=== PATIENT | female | born 1955 | race Caucasian/White ===

== ENCOUNTER 2019-12-28 16:29 | Inpatient (IN) | payer OTHER ==
--- NOTE | 2019-12-28 18:08 | ER ---
Nurse's Notes [facility] Name: Mary Shields Age: 64 yrs Sex: Female : 1955 Arrival Date: 12/28/2019 Time: 16:31 Bed 13 Private MD: Diagnosis: Cellulitis of right lower limb;Unspecified open wound, right lower leg Presentation: 12/27 17:00 Chief complaint: Patient states: Sent by Dr. Allen for evaluation of wound infection ss to R lateral ankle. Coronavirus screen: Client denies travel out of the [place] in the last 14 days. 17:00 Method Of Arrival: Ambulatory ss 17:27 Ebola Screen: Patient negative for fever greater than or equal to 101.5 degrees ca1 Fahrenheit, and additional compatible Ebola Virus Disease symptoms No symptoms or risks identified at this time. Initial Sepsis Screen: Does the patient meet any 2 criteria? No. Patient's initial sepsis screen is negative. Does the patient have a suspected source of infection? No. Patient's initial sepsis screen is negative. Risk Assessment: Do you want to hurt yourself or someone else? Patient reports no desire to harm self or others. Onset of symptoms was December 28, 2019. 17:27 Acuity: EFRAÍN 3 ca1 Historical: - Allergies: 17:21 No Known Allergies; ss - Immunization history:: Adult Immunizations up to date. - Social history:: Smoking status: Patient denies any tobacco usage or history of. Screenin:00 Abuse screen: Denies threats or abuse. Denies injuries from another. Nutritional ca1 screening: No deficits noted. Tuberculosis screening: No symptoms or risk factors identified. Fall Risk Secondary diagnosis (15 points) impaired mobility, IV access (20 points). Ambulatory Aid- Crutches/Cane/Walker (15 pts). Gait- Impaired (20 pts.). Total Sandra Fall Scale indicates High Risk Score (45 or more points). Fall prevention measures have been instituted. Side Rails Up X 2 Family Present and informed to notify staff if the need to leave the bedside As available patient and family educated on Fall Prevention Program and Strategies. Assessment: 17:20 General: Appears in no apparent distress. comfortable, Behavior is calm, cooperative, ca1 appropriate for age. 17:20 Pain: Denies pain. Neuro: Level of Consciousness is awake, alert, obeys commands, ca1 Oriented to person, place, time, situation, Appropriate for age. Derm: Skin is healthy with good turgor, Skin is pink, warm \\T\\ dry. Wound noted right lateral malleolus Wound is Nickel size, with serosanguinous drainage, eschar noted. Surrounding skin appears red, swollen and warm to touch. 17:40 Reassessment: Pt states, "I feel shaky, my blood sugar must be low". Checked BGL at 52. ca1 Notified provider. Ordered Regular diet. PT given some juice. 18:22 Reassessment: Patient appears in no apparent distress at this time. Patient and/or ca1 family updated on plan of care and expected duration. Pain level reassessed. Patient is alert, oriented x 3, equal unlabored respirations, skin warm/dry/pink. Dr. Cm at bedside. 19:13 Reassessment: Patient appears in no apparent distress at this time. Patient is alert, ca1 oriented x 3, equal unlabored respirations, skin warm/dry/pink. 20:21 Reassessment: Patient appears in no apparent distress at this time. Patient and/or ca1 family updated on plan of care and expected duration. Pain level reassessed. Patient is alert, oriented x 3, equal unlabored respirations, skin warm/dry/pink. 20:21 Reassessment: Called for report, no answer. ca1 20:35 Reassessment: Called for report. No answer. ca1 21:19 Reassessment: Patient appears in no apparent distress at this time. Patient and/or ca1 family updated on plan of care and expected duration. Pain level reassessed. Patient is alert, oriented x 3, equal unlabored respirations, skin warm/dry/pink. Vital Signs: 17:20 BP 199 / 83; Pulse 86; Resp 18 S; Temp 98(O); Pulse Ox 99% on R/A; Weight 61.23 kg (R); ca1 Height 5 ft. 4 in. (162.56 cm); Pain 0/10; 18:22 BP 197 / 112; Pulse 97; Resp 15 S; Pulse Ox 100% on R/A; ca1 19:13 BP 186 / 91; Pulse 90; Resp 18 S; Pulse Ox 99% on R/A; ca1 20:21 BP 171 / 62; Pulse 90; Resp 19 S; Pulse Ox 99% on R/A; ca1 21:19 BP 151 / 72; Pulse 92; Resp 18 S; Pulse Ox 99% on R/A; ca1 17:20 Body Mass Index 23.17 (61.23 kg, 162.56 cm) ca1 ED Course: 16:31 Patient arrived in ED. ag5 16:54 Chaz Flowers PA is PHCP. jr8 16:54 Mono Waters MD is Attending Physician. jr8 17:02 Anisa Bishop RN is Primary Nurse. ca1 17:21 Arm band placed on right wrist. ss 17:28 Triage completed. ca1 17:30 Patient has correct armband on for positive identification. Placed in gown. Bed in low ca1 position. Call light in reach. Side rails up X2. Pulse ox on. NIBP on. 17:36 Initial lab(s) drawn, by ED staff, sent to lab. Inserted saline lock: 20 gauge in right ca1 forearm, using aseptic technique. ,using aseptic technique. by MANUEL Mendoza Blood collected. 18:06 Dee Dee Cm MD is Hospitalizing Provider. jr8 18:08 [employer] In Process Unspecified. EDMS 18:22 Inserted saline lock: 22 gauge in left wrist, using aseptic technique. Blood collected. ca1 18:22 Initial lab(s) drawn, by me, sent to lab. Second set of blood cultures drawn by me. ca1 19:13 No provider procedures requiring assistance completed. Patient admitted, IV remains in ca1 place. Administered Medications: 19:00 Drug: Cefepime 1 grams Route: IVPB; Rate: 200 ml/hr; Infused Over: 30 mins; Site: left ca1 wrist; 19:34 Follow up: Response: No adverse reaction; IV Status: Completed infusion; IV Intake: ca1 100ml 19:35 Drug: vancoMYCIN 1 grams Route: IVPB; Infused Over: 2 hrs; Site: left wrist; ca1 20:22 Follow up: Response: No adverse reaction; IV Status: Infusion continued upon admission ca1 Intake: 19:34 IV: 100ml; Total: 100ml. ca1 Outcome: 18:07 Decision to Hospitalize by Provider. jr8 21:23 Admitted to Tele accompanied by tech, via wheelchair, room 401, with chart, Report ca1 called to MANUEL Nance 21:23 Condition: stable 21:23 Instructed on the need for admit. 21:52 Patient left the ED. ca1 Signatures: Dispatcher [employer] Nelly Bartholomew RN RN ss Chaz Flowers PA PA jr8 Anisa Bishop RN RN ca1 Ml Jamil ag5 Corrections: (The following items were deleted from the chart) 17:49 17:30 General: Appears ca1 ca1
--- NOTE | 2019-12-28 18:08 | EDPHYS ---
Physician Documentation [facility] Name: Mary Shields Age: 64 yrs Sex: Female : 1955 Arrival Date: 12/28/2019 Time: 16:31 Bed 13 Private MD: ED Physician Mono Waters HPI: 12/27 17:33 This 64 yrs old Female presents to ER via Ambulatory with complaints of Wound jr8 Check. 17:33 The affected area is on the right ankle. Progress: The patient reports increased jr8 drainage, pain, redness, swelling. The patient has not experienced similar symptoms in the past. The patient has been recently seen by a physician:. Patient stated that she just started wound therapy at our outpatient center. Stated that after Dr. Allen saw it today, had concern for infection and was directed to ED for further evaluation. Patient stated that it is foul smelling and with increased swelling, redness, and discharge . Historical: - Allergies: 17:21 No Known Allergies; ss - Immunization history:: Adult Immunizations up to date. - Social history:: Smoking status: Patient denies any tobacco usage or history of. ROS: 17:33 Eyes: Negative for injury, pain, redness, and discharge, ENT: Negative for injury, jr8 pain, and discharge, Neck: Negative for injury, pain, and swelling, Cardiovascular: Negative for chest pain, palpitations, and edema, Respiratory: Negative for shortness of breath, cough, wheezing, and pleuritic chest pain, Abdomen/GI: Negative for abdominal pain, nausea, vomiting, diarrhea, and constipation, Back: Negative for injury and pain, MS/Extremity: Negative for injury and deformity, Neuro: Negative for headache, weakness, numbness, tingling, and seizure. 17:33 Skin: Positive for erythema, swelling, ulceration, of the right ankle. Exam: 17:33 Eyes: Pupils equal round and reactive to light, extra-ocular motions intact. Lids and jr8 lashes normal. Conjunctiva and sclera are non-icteric and not injected. Cornea within normal limits. Periorbital areas with no swelling, redness, or edema. ENT: Nares patent. No nasal discharge, no septal abnormalities noted. Tympanic membranes are normal and external auditory canals are clear. Oropharynx with no redness, swelling, or masses, exudates, or evidence of obstruction, uvula midline. Mucous membranes moist. Neck: Trachea midline, no thyromegaly or masses palpated, and no cervical lymphadenopathy. Supple, full range of motion without nuchal rigidity, or vertebral point tenderness. No Meningismus. Respiratory: Lungs have equal breath sounds bilaterally, clear to auscultation and percussion. No rales, rhonchi or wheezes noted. No increased work of breathing, no retractions or nasal flaring. Abdomen/GI: Soft, non-tender, with normal bowel sounds. No distension or tympany. No guarding or rebound. No evidence of tenderness throughout. Back: No spinal tenderness. No costovertebral tenderness. Full range of motion. Skin: Warm, dry with normal turgor. Normal color with no rashes, no lesions, and no evidence of cellulitis. Neuro: Awake and alert, GCS 15, oriented to person, place, time, and situation. Cranial nerves II-XII grossly intact. Motor strength 5/5 in all extremities. Sensory grossly intact. Cerebellar exam normal. Normal gait. 17:33 Musculoskeletal/extremity: Extremities: grossly normal except: noted in the right leg: Patient has approximately 2.5 cm well demarcated ulceration with eschar present at the lateral malleolus of the right ankle. Swelling and erythema surrounds the wound and extends to the foot. Swelling extends to the foot and up through the calf , ROM: intact in all extremities, Femoral and Popliteal pulses 2+ right leg. DP and PT not palpable . Sensation intact. Vital Signs: 17:20 BP 199 / 83; Pulse 86; Resp 18 S; Temp 98(O); Pulse Ox 99% on R/A; Weight 61.23 kg (R); ca1 Height 5 ft. 4 in. (162.56 cm); Pain 0/10; 18:22 BP 197 / 112; Pulse 97; Resp 15 S; Pulse Ox 100% on R/A; ca1 19:13 BP 186 / 91; Pulse 90; Resp 18 S; Pulse Ox 99% on R/A; ca1 20:21 BP 171 / 62; Pulse 90; Resp 19 S; Pulse Ox 99% on R/A; ca1 21:19 BP 151 / 72; Pulse 92; Resp 18 S; Pulse Ox 99% on R/A; ca1 17:20 Body Mass Index 23.17 (61.23 kg, 162.56 cm) ca1 MDM: 16:54 Patient medically screened. [facility] 18:04 Data reviewed: vital signs, nurses notes, lab test result(s), radiologic studies, plain jr films, ultrasound. Data interpreted: Pulse oximetry: on room air is 99 %. Interpretation: normal. Counseling: I had a detailed discussion with the patient and/or guardian regarding: the historical points, exam findings, and any diagnostic results supporting the discharge/admit diagnosis, lab results, radiology results, the need for further work-up and treatment in the hospital. 12/27 17:09 Order name: LFT's; Complete Time: 16:51 [facility] 12/27 17:09 Order name: Procalcitonin; Complete Time: 16:51 [facility] 12/27 17:09 Order name: ESR; Complete Time: 16:51 [facility] 12/27 17:09 Order name: CRP; Complete Time: 16:51 [facility] 12/27 17:09 Order name: Blood Culture Adult (2) [facility] 12/27 17:46 Order name: Glucose, Ancillary Testing; Complete Time: 17:54 [facility] 12/27 18:33 Order name: CBC with Automated Diff [facility] 12/27 18:33 Order name: CBC with Automated Diff; Complete Time: 16:51 [facility] 12/27 18:33 Order name: Lipid Profile [facility] 12/27 18:33 Order name: Lipid Profile; Complete Time: 16:51 [facility] 12/27 18:33 Order name: Protime (+INR) [facility] 12/27 18:33 Order name: Protime (+INR); Complete Time: 16:51 [facility] 12/27 17:09 Order name: IV; Complete Time: 17:36 [facility] 12/27 17:09 Order name: US LE Artery Uni Ltd; Complete Time: 16:51 [facility] 12/27 17:32 Order name: Diet Regular; Complete Time: 17:33 [facility] 12/27 18:33 Order name: CONS Pharmacy Consult [facility] 12/27 18:33 Order name: CONS Pharmacy Consult [facility] 12/27 18:33 Order name: CONS Physician Consult [facility] 12/27 18:33 Order name: CONS Physician Consult [facility] 12/27 18:33 Order name: NPO [facility] 12/27 18:33 Order name: PTT, Activated Partial Thromb [facility] 12/27 18:33 Order name: PTT, Activated Partial Thromb; Complete Time: 16:51 [facility] 12/27 18:33 Order name: CONS [facility] Cons [facility] 12/27 18:35 Order name: Bone Imaging Three Phase [facility] 12/27 21:34 Order name: Glucose, Ancillary Testing; Complete Time: 16:51 [facility] Administered Medications: 19:00 Drug: Cefepime 1 grams Route: IVPB; Rate: 200 ml/hr; Infused Over: 30 mins; Site: left ca1 wrist; 19:34 Follow up: Response: No adverse reaction; IV Status: Completed infusion; IV Intake: ca1 100ml 19:35 Drug: vancoMYCIN 1 grams Route: IVPB; Infused Over: 2 hrs; Site: left wrist; ca1 20:22 Follow up: Response: No adverse reaction; IV Status: Infusion continued upon admission ca1 Disposition: 12/28/19 18:07 Hospitalization ordered by Dee Dee Cm for Inpatient Admission. Preliminary diagnosis are Cellulitis of right lower limb, Unspecified open wound, right lower leg. - Bed requested for Telemetry/MedSurg (Inpatient). - Status is Inpatient Admission. ca1 - Condition is Stable. - Problem is new. - Symptoms are unchanged. Addendum: 01/02/2020 19:06 Co-signature as Attending Physician, Mono Waters MD. r n Signatures: Dispatcher [employer] [facility] Mono Waters MD MD rn Smirch, Shelby, RN RN ss Roszak, Josh, PA PA jr8 Queta Calvert RN RN tl1 Anisa Bishop RN RN ca1 Corrections: (The following items were deleted from the chart) 12/27 17:36 17:10 CBC+H.LAB.BRZ ordered. [facility] 17:36 17:10 BASIC METABOLIC PANEL+C.LAB.BRZ ordered. [facility] 19:50 18:07 Hospitalization Ordered by Dee Dee Cm MD for Inpatient Admission. Preliminary tl1 diagnosis is Cellulitis of right lower limb; Unspecified open wound, right lower leg. Bed requested for Telemetry/MedSurg (Inpatient). Status is Inpatient Admission. Condition is Stable. Problem is new. Symptoms are unchanged. jr8 21:52 19:50 12/28/2019 18:07 Hospitalization Ordered by Dee Dee Cm MD for Inpatient ca1 Admission. Preliminary diagnosis is Cellulitis of right lower limb; Unspecified open wound, right lower leg. Bed requested for Telemetry/MedSurg (Inpatient). Status is Inpatient Admission. Condition is Stable. Problem is new. Symptoms are unchanged. tl1
--- NOTE | 2019-12-28 18:19 | RAD REPORT ---
EXAM DESCRIPTION: US - Lower Extremity Artery Uni Ltd - 12/28/2019 6:08 pm CLINICAL HISTORY: Leg pain/peripheral vascular disease COMPARISON: None FINDINGS: The right common femoral, superficial femoral arteries are biphasic The right popliteal, posterior tibial and dorsalis pedis arteries demonstrate monophasic waveforms bi laterally. IMPRESSION: Mild disease involving the proximal arteries right lower extremity Moderate disease involving the mid and distal arteries right lower extremity No occlusion
[2019-12-28] MEDS ORDERED: MORPHINE 2 MG/ML SYR IV PRN (18:21)
[2019-12-28] MEDS ORDERED: ONDANSETRON 4 MG/2 ML VIAL IV PRN (18:21)
[2019-12-28] MEDS ORDERED: CEFEPIME/SWI 1gm 1 ML IVP ONE (19:00)
[2019-12-28 19:11] LABS: Albumin 3.3 g/dL (3.4-5.0); Bilirubin Direct 0.2 mg/dL (0-0.2); Bilirubin Total 0.7 mg/dL (0.2-1.0); C-Reactive Protein 13.6 mg/L (<3.00); Protein, Total 7.9 g/dL (6.4-8.2)
[2019-12-28] MEDS ORDERED: NA CHLORIDE 0.9% 250 ML ONE (19:35)
[2019-12-28] MEDS ORDERED: VANCOMYCIN 1 GM/VIAL ONE (19:35)
[2019-12-28] MEDS: VANCOMYCIN/NS 1 gm 1 GM/250 ML BAG IVPB SCH (20:00)
[2019-12-28 22:53] VITALS: BMI 23.1
[2019-12-28] MEDS: NA CHLORIDE 0.9% 1,000 ML IV SCH (23:12)
[2019-12-28] MEDS: ACETAMINOPHEN 500 MG TAB PO PRN (23:12)
[2019-12-28] MEDS: Levofloxacin500mg IV 500 MG/100 ML BAG IV SCH (23:12)
[2019-12-29] MEDS: HYDRALAZINE HCL 20 MG/ML VIAL IV PRN ×3 (00:23→22:38)
[2019-12-29 06:20] LABS: Basophils % 0.3 % (0-1.3); Hematocrit 29.4 % (36.0-45.0); Lymphocytes % 13.7 % (15.3-44.8); MPV 7.4 fL (7.6-11.3); RBC Red Blood Cell Count 3.69 M/uL (3.86-4.86)
[2019-12-29 06:28] LABS: Protime INR 1.14
[2019-12-29] MEDS: VANCOMYCIN/NS 1 gm 1 GM/250 ML BAG IVPB SCH ×2 (08:00→22:38)
[2019-12-29] MEDS: NA CHLORIDE 0.9% 1,000 ML IV SCH ×2 (08:03→18:15)
--- NOTE | 2019-12-29 08:19 | P.HP ---
Certification for Inpatient Patient admitted to: Inpatient With expected LOS: >2 Midnights Patient will require the following post-hospital care: None Practitioner: I am a practitioner with admitting privileges, knowledge of patient current condition, hospital course, and medical plan of care. Services: Services provided to patient in accordance with Admission requirements found in Title 42 Section 412.3 of the Code of Federal Regulations Patient History Date of Service: 12/28/19 Reason for admission: Ulceration on the right foot History of Present Illness: Patient is a 64-year-old female who presents to the hospital with a cellulitis and right lateral malleolus ulceration. Patient had arterial Doppler in the emergency room which revealed mild peripheral arterial disease. Patient was seen and wound healing by Dr. Allen, and he sent her to the emergency room. She has surrounding cellulitis of the wound. She has a history of diabetes. S he was started on IV antibiotics and she will need MRI of the foot today. Our MRI machine has been down so I may do a triple phase bone scan to further evaluate. Otherwise, patient with no complaints. She does have significant nephropathy of the lower extremities. She will need to follow up with wound healing. We did get General surgery consultation as it looks like the ankle may need debridement and we will keep her NPO after midnight. Allergies No Known Allergies Allergy (Verified 12/28/19 14:16) Home Medications: Insulin Glargine,Hum.rec.anlog [Basaglar Kwikpen U-100] 20 units SQ BID 12/28/19 Metoprolol Succinate [Toprol Xl] 100 mg PO BEDTIME 12/28/19 Tramadol HCl [Ultram] 50 mg PO Q6HP PRN 12/28/19 - Past Medical/Surgical History Has patient received pneumonia vaccine in the past: Yes Diabetic: Yes -: IDDM -: HTN -: bilateral cataract sx -: lap joseph -: nerve surgery rfa -: breast reduction - Family History Father History Unknown: Yes Notes: Mother Medical History: Hypertension, Diabetes Notes: - Social History Smoking Status: Never smoker Alcohol use: No CD- Drugs: No Caffeine use: Yes Place of Residence: Home Review of Systems 10-point ROS is otherwise unremarkable Physical Examination - Vital Signs Temperature: 98.6 F Blood Pressure: 178/75 Pulse: 87 Respirations: 18 Pulse Ox (%): 96 - Physical Exam General: Alert, In no apparent distress, Oriented x3 HEENT: Atraumatic, PERRLA, Mucous membr. moist/pink, EOMI, Sclerae nonicteric Neck: Supple, 2+ carotid pulse no bruit, No LAD, Without JVD or thyroid abnormality Respiratory: Clear to auscultation bilaterally, Normal air movement Cardiovascular: Regular rate/rhythm, Normal S1 S2, No murmurs Gastrointestinal: Normal bowel sounds, Soft and benign, Non-distended, No tenderness Musculoskeletal: No clubbing, Swelling, Erythema, Tenderness Integumentary: Arterial ulcer Neurological: Normal gait, Normal speech, Normal strength at 5/5 x4 extr, Normal tone, Sensation intact, Cranial nerves 3-12 intact, Normal affect Lymphatics: No axilla or inguinal lymphadenopathy - Studies Laboratory Data (last 24 hrs) 12/28/19 18:18: Sodium Cancelled, Potassium Cancelled, BUN Cancelled, Creatinine Cancelled, Glucose Cancelled, Total Bilirubin 0.7, AST 23, ALT 19, Alkaline Phosphatase 131 H 12/28/19 17:43: WBC Cancelled, Hgb Cancelled, Hct Cancelled, Plt Count Cancelled Assessment & Plan - Problems (Diagnosis) (1) Wound of right ankle Current Visit: Yes Status: Acute (2) PAD (peripheral artery disease) Current Visit: Yes Status: Acute (3) Type 2 diabetes mellitus Current Visit: Yes Status: Acute (4) Diabetes Current Visit: No Status: Acute (5) Hx of breast reduction, elective Current Visit: No Status: Acute (6) Hx of cataract surgery Current Visit: No Status: Acute (7) Hypertension Current Visit: No Status: Acute (8) Neuropathy Current Visit: No Status: Acute (9) Osteomyelitis Current Visit: No Status: Suspected - Plan 1. Continue with IV antibiotic; anti-platelet therapy 2. Continue with local wound care 3. Wound care consultation/surgical consultation 4. Gentle IV hydration 5. Monitor CBC 6. Strict blood sugar monitoring 7. Pain control 8. Cardiology consultation for PAD 9. GI and DVT prophylaxis Discharge Plan: Home Plan to discharge in: Greater than 2 days - Advance Directives Does patient have a Living Will: Yes Does patient have a Durable POA for Healthcare: No - Code Status/Comfort Care Code Status Assessed: Yes Code Status: Full Code Critical Care: No Time Spent Managing PTS Care (In Minutes): 45
[2019-12-29] MEDS: D50W 25 GM/50 ML SYRINGE/VIAL IV PRN ×2 (08:26→11:53)
--- NOTE | 2019-12-29 11:46 | RAD REPORT ---
EXAM DESCRIPTION: NM - Bone Imaging Three Phase - 12/29/2019 10:55 am CLINICAL HISTORY: Right ankle pain/ulceration COMPARISON: December 28, 2019 x-ray TECHNIQUE: 25.6 mCi Tc MDPwas administered intravenously. Three-phase bone scan of the ankles/feet obtained FINDINGS: The perfusion and blood pool images demonstrate mildly increased radiotracer uptake to th e right ankle The delayed images demonstrate areas of increased radiotracer uptake involving the ankles bilaterally which is actually more prominent on the left. Increased uptake also involves the left great toe like ly degenerative in nature IMPRESSION: Increased radiotracer uptake involving the ankles left greater than right probably degen erative in nature Mildly increased radiotracer uptake involving the right ankle on blood pool and perfusion sequences p robably indicating a cellulitis If strong clinical suspicion persists for osteomyelitis then MRI would be recommended
[2019-12-29] MEDS ORDERED: LIDOCAINE 1% MPF 5 ML VIAL ONE (12:20)
[2019-12-29] MEDS ORDERED: propofoL 200 MG/20 ML VIAL IV ONE (12:20)
[2019-12-29] MEDS ORDERED: FENTANYL CITR 100 MCG/2 ML ONE (12:20)
[2019-12-29] MEDS ORDERED: dexAMETHasone 10 MG/ML VIAL ONE (12:38)
[2019-12-29] MEDS ORDERED: KETOROLAC 30 MG/ML INJ ONE (12:38)
[2019-12-29] MEDS ORDERED: ONDANSETRON 4 MG/2 ML VIAL ONE (12:38)
--- NOTE | 2019-12-29 12:44 | P.BOP ---
Preoperative diagnosis: right malleolar necrotic diabetic ulcer Postoperative diagnosis: same Primary procedure: Debridement subQ of right malleolar necrotic diabetic ulcer 3 x 3 x 0.5cm Estimated blood loss: miminal Specimen: necrotic tissue and ulcer culture Findings: necrotic tissue, bone exposed Anesthesia: General Complications: None Drain(s): Other Transferred to: Recovery Room Condition: Good
--- NOTE | 2019-12-29 13:22 | CON ---
Date of Consultation: 12/29/2019 Diagnosis: Necrotic ulcer, right foot. History Of Present Illness: This is the case of a 64-year-old patient with multiple medical problems , admitted to the hospital with cellulitis of the right leg and also a diabetic ulcer with necrosis a nd infection on the right malleolar region. She does not remember exactly what happened, she recalle d, she probably hit it before and that has healed, develop into this black tissue then redness. She has been admitted to the hospital and being workup also to rule out osteomyelitis. She denies any dy suria, hematuria, hematochezia, melena. Denies any recent traveling out of the country. Denies any family member sick at home. Review of Systems: Ten points otherwise unremarkable. Allergies: NONE. Medications: Insulin, metoprolol, and . Past Medical History: Diabetes insulin-dependent and hypertension. Past Surgical History: Include a breast reduction surgery, laparoscopic cholecystectomy, and catarac t surgery. Family History: Hypertension and diabetes. Social History: She does not smoke. She does not drink alcohol. Physical Examination: General: The patient is awake and alert. HEENT: Pupils anicteric. Neck: Supple. Chest: Clear. Abdomen: Soft and depressible. Extremities: Full range of motion of the right malleolar region. The patient has about 3 x 3 cm katy betic ulcer with black tissue associated with it. Looks consistent with abscess and cellu litis and need to be debrided. How did that goes, we will see it after the surgery. Since, I guesst imate if the bone is infected or not, although a bone scan or MRI may also give us some help to delin eate that. Dorsalis pedis pulses bilaterally are diminished, although is still present. Imaging: Doppler ultrasound of the bilateral lower extremities shows mild disease involving the prox imal arteries right lower extremity. The bone scan done today, but they cannot delineate osteomyelit is just on this test. Assessment: This is 64-year-old patient with necrotic diabetic ulcer in the right ankle foot region. The patient need debridement with benefits, alternatives, and risks including, but not limited to i nfection, bleeding, damage to adjacent structures, anesthesia complication, nonhealing ulcer, VT, and even . She also understands this may not relieve the symptoms. She might need more than one s urgical intervention. She understands this will require wound care and most likely she [facility] BONITA Voice ID: [id number] Report ID: [id number]
[2019-12-29] MEDS: Levofloxacin500mg IV 500 MG/100 ML BAG IV SCH (18:11)
[2019-12-30] MEDS: NA CHLORIDE 0.9% 1,000 ML IV SCH ×3 (01:00→20:35)
[2019-12-30] MEDS: COLLAGENASE 30 GM OINTMENT TOP SCH (09:00)
[2019-12-30] MEDS: VANCOMYCIN/NS 1 gm 1 GM/250 ML BAG IVPB SCH ×2 (09:10→20:35)
--- NOTE | 2019-12-30 09:57 | P.PN ---
Subjective Date of Service: 12/29/19 Subjective: No new changes, No C/O voiced, Tolerating diet Review of Systems 10-point ROS is otherwise unremarkable Physical Examination - Vital Signs Temperature: 98.5 F Blood Pressure: 141/65 Pulse: 81 Respirations: 18 Pulse Ox (%): 97 - Physical Exam General: Alert, In no apparent distress, Oriented x3 Respiratory: Clear to auscultation bilaterally, Normal air movement Cardiovascular: Regular rate/rhythm, Normal S1 S2, No murmurs Gastrointestinal: Normal bowel sounds, Soft and benign, Non-distended, No tenderness Musculoskeletal: No clubbing, Swelling, Erythema, Tenderness, Warmth Neurological: Normal strength at 5/5 x4 extr, Sensation intact, Cranial nerves 3-12 intact - Studies Medications List Reviewed: Yes Assessment & Plan - Problems (Diagnosis) (1) Wound of right ankle Current Visit: Yes Status: Acute (2) PAD (peripheral artery disease) Current Visit: Yes Status: Acute (3) Type 2 diabetes mellitus Current Visit: Yes Status: Acute (4) Diabetes Current Visit: No Status: Acute (5) Hx of breast reduction, elective Current Visit: No Status: Acute (6) Hx of cataract surgery Current Visit: No Status: Acute (7) Hypertension Current Visit: No Status: Acute (8) Neuropathy Current Visit: No Status: Acute (9) Osteomyelitis Current Visit: No Status: Suspected - Plan Continue with POC as mentioned below: 1. Continue with IV antibiotic; anti-platelet therapy 2. Continue with local wound care 3. Wound care consultation/surgical consultation appreciated; s/p debridement 4. Gentle IV hydration 5. Monitor CBC 6. Strict blood sugar monitoring 7. Pain control 8. Cardiology consultation for PAD appreciated; outpt follow-up 9. GI and DVT prophylaxis Discharge Plan: Home Plan to discharge in: Greater than 2 days - Advance Directives Does patient have a Living Will: Yes Does patient have a Durable POA for Healthcare: No - Code Status/Comfort Care Code Status: Full Code Critical Care: No Time Spent Managing PTS Care (In Minutes): 35
[2019-12-30] MEDS ORDERED: TRAMADOL HCL 50 MG TAB PO PRN (15:35)
[2019-12-30] MEDS: Levofloxacin500mg IV 500 MG/100 ML BAG IV SCH (17:34)
--- NOTE | 2019-12-30 19:50 | CON ---
Date of Consultation: 12/29/2019 Reason For Consultation: Cardiac clearance and peripheral arterial disease evaluation. History Of Present Illness: Ms. Shields is a 64-year-old woman, who came in with a complaint of wound o n her right ankle with increasing drainage, pain, redness, and swelling. She had been sent to the [facility] by Dr. Allen to be evaluated. She had no cardiac complaint. Past Medical History: Include diabetes and hypertension. Review of Systems: Negative. Social History: Negative. Family History: Noncontributory. Physical Examination: Vital Signs: Stable. She did have a temperature of 99.1. She was in sinus rhythm. HEENT: Negative. Neck: Supple. No bruit. Chest: Clear to auscultation and percussion. Cardiac: Regular rhythm and rate. No murmurs, gallops, or rubs. Abdomen: Benign. Extremities: No clubbing, cyanosis, or edema. Diagnostic Data: Her glucose was 234. C-reactive protein was 13.1. The rest of her blood work was fairly unremarkable. Her procalcitonin was negative. An arterial Doppler revealed mild disease invo lving the proximal arteries of the right lower extremity, moderate disease involving the mid and dist al arteries of the right lower extremities. No occlusion. Impression And Plan: The patient with peripheral arterial disease that is mild to moderate, diabetes , hypertension. She has no cardiac symptoms and no evidence of coronary artery disease or congestive heart failure by physical examination. The patient has been seen by Dr. Aponte for her necrotic r ight foot ulcer. Debridement was recommended. From our standpoint, she is cleared to undergo surger y. I think considering her risk factors of hypertension, diabetes, and peripheral arterial disease, she definitely should have her cardiac status evaluated, and I will make arrangements for her as an o utpatient. FARIBA/LINETTE Voice ID: [id number] Report ID: [id number]
[2019-12-30] MEDS: ACETAMINOPHEN 500 MG TAB PO PRN (20:34)
[2019-12-30] MEDS: INSULIN GLARGINE HUM REC ANLOG 20 UNIT SQ SCH (20:35)
[2019-12-30] MEDS ORDERED: METOPROLOL XL 100 MG TAB PO SCH (21:00)
[2019-12-30 21:22] VITALS: O2SAT 96
[2019-12-31] MEDS: NA CHLORIDE 0.9% 1,000 ML IV SCH (04:07)
[2019-12-31] MEDS: HYDRALAZINE HCL 20 MG/ML VIAL IV PRN (05:24)
[2019-12-31 06:34] LABS: Absolute Lymphocytes (CBC) 1.1 K/uL (0.7-4.9); Basophils % 0.5 % (0-1.3); Hematocrit 26.5 % (36.0-45.0); Lymphocytes % 21.8 % (15.3-44.8); MPV 7.3 fL (7.6-11.3); RBC Red Blood Cell Count 3.27 M/uL (3.86-4.86)
[2019-12-31 06:46] LABS: BUN Blood Urea Nitrogen 11 mg/dL (7-18); Bicarbonate 23 mmol/L (21-32); Glucose Level 139 mg/dL (74-106); Phosphorus 2.2 mg/dL (2.5-4.9); Potassium 3.7 mmol/L (3.5-5.1); Sodium Level 145 mmol/L (136-145)
[2019-12-31] MEDS: INSULIN GLARGINE HUM REC ANLOG 20 UNIT SQ SCH (07:54)
[2019-12-31] MEDS: VANCOMYCIN/NS 1 gm 1 GM/250 ML BAG IVPB SCH (07:55)
[2019-12-31] MEDS: COLLAGENASE 30 GM OINTMENT TOP SCH (07:57)
[2019-12-31 08:12] VITALS: BP 169/72; TEMP 99.1
[2019-12-31] MEDS ORDERED: LOSARTAN POTASSIUM 50 MG TABLET PO ONE (09:04)
== END 2019-12-31 10:55 | disposition home or self-care (01) | DRG 264 ==
LOC: ER 16:29 → ERHOLD 18:24 → 4TH 21:37
PROVIDERS: ADMIT Hospitalist; ATTEND Hospitalist
PROC: 0JBQ0ZZ Excision of Right Foot Subcutaneous Tissue and Fascia, Open Approach (ICD-10-PCS; principal; 2019-12-29 12:30)
DX: E11.52 Type 2 diabetes mellitus with diabetic peripheral angiopathy with gangrene (principal); L03.115 Cellulitis of right lower limb; I96 Gangrene, not elsewhere classified; L02.415 Cutaneous abscess of right lower limb; I10 Essential (primary) hypertension; E11.42 Type 2 diabetes mellitus with diabetic polyneuropathy; E11.621 Type 2 diabetes mellitus with foot ulcer; L97.519 Non-pressure chronic ulcer of other part of right foot with unspecified severity; Z79.899 Other long term (current) drug therapy; Z79.4 Long term (current) use of insulin; Z20.828 Contact with and (suspected) exposure to other viral communicable diseases
CPT/HCPCS: 11042; 36415; 78315; 80048; 80061; 80076; 80202; 82565; 82947; 83735; 84100; 84145; 85025; 85610; 85652; 85730; 86140; 87040; 87070; 87075; 87077; 87186; 87205; 88302; 88304; 93926; 96365; 96367; 99204; 99285; A9503; J0360; J0692; J1100; J2270; J2405; J2704; J3010; J3370; J3590; J7030; J7050; U0002

== ENCOUNTER 2022-03-07 09:16 | Observation (INO) | payer OTHER ==
[2022-03-07] MEDS ORDERED: ONDANSETRON 4 MG/2 ML VIAL ONE (10:08)
[2022-03-07] MEDS ORDERED: MORPHINE 2 MG/ML SYR ONE (10:08)
[2022-03-07 10:19] LABS: Hematocrit 33.6 % (36.0-45.0); MCV 87.1 fL (80-100); MPV 7.9 fL (7.6-11.3); RBC Red Blood Cell Count 3.86 M/uL (3.86-4.86)
[2022-03-07 10:33] LABS: Albumin 3.7 g/dL (3.4-5.0); Bilirubin Total 0.9 mg/dL (0.2-1.0); Potassium 4.1 mmol/L (3.5-5.1); Protein, Total 7.7 g/dL (6.4-8.2)
[2022-03-07 11:09] LABS: Urine Blood 1+ (Negative); Urine Glucose 1+ (Negative); Urine Protein 1+ (Negative)
[2022-03-07 11:24] LABS: Urine RBC <5 /HPF (None Seen)
--- NOTE | 2022-03-07 11:50 | EDPHYS ---
Physician Documentation [facility] Name: Mary Shields Age: 66 yrs Sex: Female : 1955 Arrival Date: 03/07/2022 Time: 09:19 Bed 16 Private MD: ED Physician Cam Tan HPI: 03/07 11:03 This 66 yrs old Female presents to ER via EMS with complaints of Vaginal Pain.juliette 11:03 The patient presents with urinary symptoms, urinary retention. Onset: The juliette symptoms/episode began/occurred 1 day(s) ago. Modifying factors: The symptoms are alleviated by nothing, the symptoms are aggravated by nothing. Associated signs and symptoms: The patient has no apparent associated signs or symptoms. Severity of symptoms: At their worst the symptoms were mild, in the emergency department the symptoms are unchanged. The patient is not sexually active. The patient has not experienced similar symptoms in the past. Historical: - Allergies: :31 No Known Allergies; db - Home Meds: : Bactrim DS Oral [Active]; db - PMHx: :31 Diabetes mellitus; Hypertensive disorder; db - Immunization history:: Adult Immunizations unknown, Client reports receiving the 2nd dose of the Covid vaccine. - Social history:: Smoking status: Patient denies any tobacco usage or history of. ROS: 11:06 Constitutional: Negative for fever, chills, and weight loss, Eyes: Negative for injury, juliette pain, redness, and discharge, ENT: Negative for injury, pain, and discharge, Neck: Negative for injury, pain, and swelling, Cardiovascular: Negative for chest pain, palpitations, and edema, Respiratory: Negative for shortness of breath, cough, wheezing, and pleuritic chest pain, Back: Negative for injury and pain, MS/Extremity: Negative for injury and deformity, Skin: Negative for injury, rash, and discoloration, Neuro: Negative for headache, weakness, numbness, tingling, and seizure, Psych: Negative for depression, anxiety, suicide ideation, homicidal ideation, and hallucinations, Allergy/Immunology: Negative for hives, rash, and allergies, Endocrine: Negative for neck swelling, polydipsia, polyuria, polyphagia, and marked weight changes, Hematologic/Lymphatic: Negative for swollen nodes, abnormal bleeding, and unusual bruising. 11:06 Abdomen/GI: Positive for Exam: 11:09 Constitutional: This is a well developed, well nourished patient who is awake, alert, juliette and in no acute distress. Head/Face: Normocephalic, atraumatic. Eyes: Pupils equal round and reactive to light, extra-ocular motions intact. Lids and lashes normal. Conjunctiva and sclera are non-icteric and not injected. Cornea within normal limits. Periorbital areas with no swelling, redness, or edema. ENT: Nares patent. No nasal discharge, no septal abnormalities noted. Tympanic membranes are normal and external auditory canals are clear. Oropharynx with no redness, swelling, or masses, exudates, or evidence of obstruction, uvula midline. Mucous membranes moist. Neck: Trachea midline, no thyromegaly or masses palpated, and no cervical lymphadenopathy. Supple, full range of motion without nuchal rigidity, or vertebral point tenderness. No Meningismus. Chest/axilla: Normal chest wall appearance and motion. Nontender with no deformity. No lesions are appreciated. Cardiovascular: Regular rate and rhythm with a normal S1 and S2. No gallops, murmurs, or rubs. Normal PMI, no JVD. No pulse deficits. Respiratory: Lungs have equal breath sounds bilaterally, clear to auscultation and percussion. No rales, rhonchi or wheezes noted. No increased work of breathing, no retractions or nasal flaring. Back: No spinal tenderness. No costovertebral tenderness. Full range of motion. Female : Normal external genitalia. Skin: Warm, dry with normal turgor. Normal color with no rashes, no lesions, and no evidence of cellulitis. MS/ Extremity: Pulses equal, no cyanosis. Neurovascular intact. Full, normal range of motion. Neuro: Awake and alert, GCS 15, oriented to person, place, time, and situation. Cranial nerves II-XII grossly intact. Motor strength 5/5 in all extremities. Sensory grossly intact. Cerebellar exam normal. Normal gait. Psych: Awake, alert, with orientation to person, place and time. Behavior, mood, and affect are within normal limits. 11:09 Abdomen/GI: Inspection: distension, that is mild, that is moderate, in the suprapubic area, Bowel sounds: normal, Palpation: mild abdominal tenderness, in the suprapubic area, Liver: no appreciated palpable abnormalities, Hernia: not appreciated. 16:39 ECG was reviewed by the Attending Physician. [facility] Vital Signs: 09:15 BP 232 / 77; Pulse 90; Resp 18; Temp 98.7(O); Pulse Ox 99% ; Weight 70.31 kg; Height 5 db ft. 4 in. (162.56 cm); Pain 9/10; 09:45 BP 161 / 108; Pulse 89; Resp 16; Pulse Ox 100% on R/A; db 10:30 BP 216 / 96; Pulse 88; Resp 18; Pulse Ox 99% on R/A; db 11:00 BP 140 / 57; Pulse 81; Resp 16; Pulse Ox 100% on R/A; db 22:03 BP 137 / 52; Pulse 83; Resp 17; Temp 99(O); Pulse Ox 100% on R/A; Pain 0/10; ke1 09:15 Body Mass Index 26.61 (70.31 kg, 162.56 cm) db MDM: 09:25 Patient medically screened. [facility] 11:11 Differential diagnosis: nonspecific abdominal pain, urinary tract infection. Data [facility] reviewed: vital signs, nurses notes, lab test result(s), radiologic studies, plain films. Data interpreted: athletic monitor: rate is 81 beats/min, rhythm is regular, Pulse oximetry: on room air is 100 %. Test interpretation: by ED physician or midlevel provider: plain radiologic studies. Counseling: I had a detailed discussion with the patient and/or guardian regarding: the historical points, exam findings, and any diagnostic results supporting the discharge/admit diagnosis, lab results, radiology results, the need for outpatient follow up. 03/07 09:26 Order name: CBC with Diff; Complete Time: 11:02 [facility] 03/07 09:26 Order name: Comprehensive Metabolic Panel; Complete Time: 11:02 [facility] 03/07 09:26 Order name: Urine Microscopic Only; Complete Time: 11:25 juliette 03/07 11:02 Order name: Urine Culture [facility] 03/07 11:09 Order name: Urine Dipstick-Ancillary; Complete Time: 11:15 EDMS 03/07 11:46 Order name: SARS RAPID; Complete Time: 20:46 [facility] 03/07 11:02 Order name: Abdomen 1 View (KUB) XRAY; Complete Time: 20:46 [facility] 03/07 11:25 Order name: CT Stone Protocol; Complete Time: 20:46 [facility] 03/07 11:46 Order name: Chest Single View XRAY; Complete Time: 20:46 [facility] 03/07 11:46 Order name: Troponin High Sensitivity; Complete Time: 20:46 [facility] 03/07 14:12 Order name: CBC with Automated Diff EDMS 03/07 14:12 Order name: CBC with Automated Diff EDNC 03/07 14:12 Order name: Comprehensive Metabolic Panel EDNC 03/07 14:12 Order name: Comprehensive Metabolic Panel EDNC 03/07 09:26 Order name: Urine Dipstick-Ancillary (obtain specimen); Complete Time: 11:09 [facility] 03/07 09:26 Order name: Sebastian: GET PVR; Complete Time: 11:09 [facility] 03/07 09:26 Order name: Pelvic Exam Setup; Complete Time: 11:09 [facility] 03/07 11:46 Order name: EKG; Complete Time: 11:47 [facility] 03/07 11:46 Order name: EKG - Nurse/Tech; Complete Time: 16:39 [facility] 03/07 14:12 Order name: CONS Physician Consult EDNC 03/07 14:12 Order name: Regular EDMS EC:39 Rate is 81 beats/min. Rhythm is regular. QRS Dendron is Normal. ND interval is normal. QRS juliette interval is normal. QT interval is normal. No Q waves. T waves are Normal. No ST changes noted. Clinical impression: NSR w/ Non-specific ST/T Changes and No evidence of ischemia. Interpreted by me. Reviewed by me. Administered Medications: 13:19 Drug: Rocephin (cefTRIAXone) 1 grams Route: IV; Rate: per protocol; Site: right db antecubital; 13:45 Follow up: Response: No adverse reaction; IV Status: Completed infusion; IV Intake: 50mldb 13:19 Drug: NS 0.9% 1000 ml Route: IV; Rate: 125 ml/hr; Site: right antecubital; db 17:31 Follow up: Response: No adverse reaction; IV Status: Infusion continued upon admission; db IV Intake: 500ml Disposition Summary: 03/07/22 11:49 Hospitalization Ordered Hospitalization Status: Observation juliette Location: Telemetry/MedSurg (observation) juliette Condition: Stable juliette Problem: new juliette Symptoms: have improved juliette Bed/Room Type: Standard juliette Provider: Reji Cm03/07/22 12:12) juliette Room Assignment: 408(03/07/22 19:30) [place] Diagnosis - Acute kidney failure, unspecified juliette - Retention of urine, unspecified - 1 liter juliette - Type 2 diabetes mellitus with hyperglycemia juliette - Unspecified urinary incontinence - with pessary, removed juliette Forms: - Medication Reconciliation Form jluiette - SBAR form juliette Signatures: Dispatcher [employer] EDAshly Henson RN RN mw Anderson, Corey, MD MD cha Benton, Danielle, RN RN Sona Lynne, PACaren PA-Bobby sb4 Corrections: (The following items were deleted from the chart) 12:12 11:49 Sancho Guzman cha [facility] 19:30 11:49 juliette atkinson
--- NOTE | 2022-03-07 11:50 | ER ---
Nurse's Notes [facility] Name: Mary Shields Age: 66 yrs Sex: Female : 1955 Arrival Date: 03/07/2022 Time: 09:19 Bed 16 Private MD: Diagnosis: Acute kidney failure, unspecified;Retention of urine, unspecified-1 liter;Type 2 diabetes mellitus with hyperglycemia;Unspecified urinary incontinence-with pessary, removed Presentation: 03/07 09:15 Chief complaint: Patient states: vaginal pain from temporary palmer. States had a db temporary plamer placed by doctor yesterday to help empty bladder. States recently diagnosed with UTI and is taking antibiotics. Coronavirus screen: Vaccine status: Patient reports receiving the 2nd dose of the covid vaccine. Client denies travel out of the [place] in the last 14 days. At this time, the client does not indicate any symptoms associated with coronavirus-19. Ebola Screen: Patient negative for fever greater than or equal to 101.5 degrees Fahrenheit, and additional compatible Ebola Virus Disease symptoms Patient denies exposure to infectious person. Patient denies travel to an Ebola-affected area in the 21 days before illness onset. No symptoms or risks identified at this time. Initial Sepsis Screen: Does the patient meet any 2 criteria? No. Patient's initial sepsis screen is negative. Does the patient have a suspected source of infection? No. Patient's initial sepsis screen is negative. Risk Assessment: Do you want to hurt yourself or someone else? Patient reports no desire to harm self or others. Onset of symptoms was March 07, 2022. 09:15 Method Of Arrival: EMS: [facility] db 09:15 Acuity: EFRAÍN 3 db Triage Assessment: :31 General: Appears in no apparent distress. comfortable, Behavior is calm, cooperative, db appropriate for age. Pain: Complains of pain in vaginal. Neuro: No deficits noted. Level of Consciousness is awake, alert, obeys commands, Oriented to person, place, time, situation, Appropriate for age. Historical: - Allergies: : No Known Allergies; db - Home Meds: : Bactrim DS Oral [Active]; db - PMHx: : Diabetes mellitus; Hypertensive disorder; db - Immunization history:: Adult Immunizations unknown, Client reports receiving the 2nd dose of the Covid vaccine. - Social history:: Smoking status: Patient denies any tobacco usage or history of. Screenin:33 Abuse screen: Denies threats or abuse. Denies injuries from another. Nutritional db screening: No deficits noted. Tuberculosis screening: No symptoms or risk factors identified. Fall Risk None identified. No fall in past 12 months (0 pts). No secondary diagnosis (0 pts). No IV (0 pts). Ambulatory Aid- None/Bed Rest/Nurse Assist (0 pts). Gait- Normal/Bed Rest/Wheelchair (0 pts) Mental Status- Oriented to own ability (0 pts). Total Sandra Fall Scale indicates No Risk (0-24 pts). Assessment: 09:33 Reassessment: Patient appears in no apparent distress at this time. Patient is alert, db oriented x 3, equal unlabored respirations, skin warm/dry/pink. See triage for initial assessment. 10:15 Reassessment: Patient refused Morphine and zofran states pain is not bad enough for db that. 11:00 Reassessment: Patient appears in no apparent distress at this time. Patient and/or db family updated on plan of care and expected duration. Pain level reassessed. Patient is alert, oriented x 3, equal unlabored respirations, skin warm/dry/pink. patient reported immediate relief of pain after palmer catheter was inserted Patient states feeling better. Patient states symptoms have improved. 12:00 Reassessment: Patient appears in no apparent distress at this time. No changes from db previously documented assessment. Patient and/or family updated on plan of care and expected duration. Pain level reassessed. Patient is alert, oriented x 3, equal unlabored respirations, skin warm/dry/pink. 13:00 Reassessment: Patient appears in no apparent distress at this time. No changes from db previously documented assessment. Patient and/or family updated on plan of care and expected duration. Pain level reassessed. Patient is alert, oriented x 3, equal unlabored respirations, skin warm/dry/pink. 14:00 Reassessment: Patient appears in no apparent distress at this time. No changes from db previously documented assessment. Patient and/or family updated on plan of care and expected duration. Pain level reassessed. Patient is alert, oriented x 3, equal unlabored respirations, skin warm/dry/pink. 15:00 Reassessment: Patient appears in no apparent distress at this time. Patient and/or db family updated on plan of care and expected duration. Pain level reassessed. Patient is alert, oriented x 3, equal unlabored respirations, skin warm/dry/pink. 16:00 Reassessment: Patient appears in no apparent distress at this time. No changes from db previously documented assessment. Patient and/or family updated on plan of care and expected duration. Pain level reassessed. Patient is alert, oriented x 3, equal unlabored respirations, skin warm/dry/pink. Patient states feeling better. 17:20 Reassessment: Patient appears in no apparent distress at this time. No changes from db previously documented assessment. Patient and/or family updated on plan of care and expected duration. Pain level reassessed. patient is eating meal served. Vital Signs: 09:15 BP 232 / 77; Pulse 90; Resp 18; Temp 98.7(O); Pulse Ox 99% ; Weight 70.31 kg; Height 5 db ft. 4 in. (162.56 cm); Pain 9/10; 09:45 BP 161 / 108; Pulse 89; Resp 16; Pulse Ox 100% on R/A; db 10:30 BP 216 / 96; Pulse 88; Resp 18; Pulse Ox 99% on R/A; db 11:00 BP 140 / 57; Pulse 81; Resp 16; Pulse Ox 100% on R/A; db 22:03 BP 137 / 52; Pulse 83; Resp 17; Temp 99(O); Pulse Ox 100% on R/A; Pain 0/10; ke1 09:15 Body Mass Index 26.61 (70.31 kg, 162.56 cm) db ED Course: 09:19 Patient arrived in ED. eb 09:21 Patient has correct armband on for positive identification. Placed in gown. Bed in low mm9 position. Call light in reach. Side rails up X2. Warm blanket given. Pulse ox on. NIBP on. 09:25 Cam Tan MD is Attending Physician. [facility] 09:27 Kait Kohli, MANUEL is Primary Nurse. db 09:31 Triage completed. db 10:00 Inserted saline lock: 20 gauge in right antecubital area, using aseptic technique. db Blood collected. 11:00 Palmer cath inserted, using sterile technique, 16 Fr., by dc, balloon inflated, to db gravity drainage, urine specimen collected. 11:30 Abdomen 1 View (KUB) XRAY In Process Unspecified. EDMS 11:48 Sancho Guzman is Hospitalizing Provider. juliette 12:09 CT Stone Protocol In Process Unspecified. EDMS 12:12 Dee Dee Cm MD is Hospitalizing Provider. juliette 13:07 Chest Single View XRAY In Process Unspecified. EDMS 14:46 SARS RAPID Sent. rs5 14:46 Troponin High Sensitivity Sent. rs5 17:29 Arm band placed on right wrist. db 17:29 No provider procedures requiring assistance completed. Patient admitted, IV remains in db place. 20:39 Primary Nurse role handed off by Kait Kohli RN mw2 21:44 Nik Vaughn, MANUEL is Primary Nurse. ke1 Administered Medications: 13:19 Drug: Rocephin (cefTRIAXone) 1 grams Route: IV; Rate: per protocol; Site: right db antecubital; 13:45 Follow up: Response: No adverse reaction; IV Status: Completed infusion; IV Intake: 50mldb 13:19 Drug: NS 0.9% 1000 ml Route: IV; Rate: 125 ml/hr; Site: right antecubital; db 17:31 Follow up: Response: No adverse reaction; IV Status: Infusion continued upon admission; db IV Intake: 500ml Medication: 17:31 VIS not applicable for this client. db Intake: 13:45 IV: 50ml; Total: 50ml. db 17:31 IV: 500ml; Total: 550ml. db Output: 11:00 Urine: 1700ml (Palmer); Total: 1700ml. db Outcome: 11:49 Decision to Hospitalize by Provider. juliette 17:29 Admitted to db 17:29 Admitted to 17:29 Condition: stable 17:29 Instructed on the need for admit. 22:12 Patient left the ED. ke1 Signatures: Dispatcher [employer] EDMS Cam Tan MD MD cha Westbrook, MyKena mw2 Farhana Arriola Kouassi, RN RN ke1 Kait Kohli, MANUEL RN Nydia Madrigal Ricky rs5
--- NOTE | 2022-03-07 12:35 | RAD REPORT ---
EXAM DESCRIPTION: CT - Stone Protocol - 03/07/2022 12:08 pm CLINICAL HISTORY: Abdominal pain. Flank pain COMPARISON: None. TECHNIQUE: Computed axial tomography of the abdomen pelvis was obtained without oral or IV contrast. Lack of IV and oral contrast limits evaluation of solid organs, appendix, bowel, and vessels. Ordoñez l reformatted images were obtained and reviewed. All CT scans are performed using dose optimization technique as appropriate and may include automated exposure control or mA/KV adjustment according to patient size. FINDINGS: A renal calculus is not seen. An ureteral calculus is not noted. A bladder calculus is not present. No hydronephrosis Cholecystectomy. The liver, spleen, pancreas and adrenals appear grossly normal There is no evidence of diverticulitis. Retroverted uterus. No adnexal mass. Small umbilical hernia A Sebastian catheter has been placed. The bladder is completely decompressed. Left hip arthroplasty. Moderate compression deformity L1 vertebral body it appears more chronic than acute Mild lingular and right middle lobe opacities appear chronic IMPRESSION: Negative for a genitourinary calculus
--- NOTE | 2022-03-07 12:38 | RAD REPORT ---
EXAM DESCRIPTION: RAD - Abdomen 1 View (KUB) - 03/07/2022 11:28 am CLINICAL HISTORY: Abdomen pain FINDINGS: The bowel gas pattern is unremarkable. 6 x 1 centimeter area of increased density superior to the pubic symphysis of uncertain etiology. Cholecystectomy Left hip arthroplasty
[2022-03-07] MEDS ORDERED: NA CHLORIDE 0.9% 1,000 ML ONE (13:12)
[2022-03-07] MEDS ORDERED: NA CHLORIDE 0.9% 50 ML IV ONE (13:12)
[2022-03-07] MEDS ORDERED: CEFTRIAXONE 1000 MG/VIAL ONE (13:12)
--- NOTE | 2022-03-07 13:36 | RAD REPORT ---
EXAM DESCRIPTION: Remy Single View03/07/2022 1:05 pm CLINICAL HISTORY: Cough COMPARISON: 2019 FINDINGS: Mild chronic bibasilar lung opacities. Upper lobes appear clear. Heart is normal size IMPRESSION: No acute abnormalities displayed
[2022-03-07] MEDS ORDERED: ONDANSETRON 4 MG/2 ML VIAL IV PRN (14:06)
[2022-03-07] MEDS ORDERED: MORPHINE 2 MG/ML SYR IV PRN (14:06)
[2022-03-07] MEDS ORDERED: ACETAMINOPHEN 500 MG TAB PO PRN (14:06)
--- NOTE | 2022-03-07 14:13 | P.HP ---
Certification for Inpatient Patient admitted to: Inpatient With expected LOS: >2 Midnights Patient will require the following post-hospital care: None Practitioner: I am a practitioner with admitting privileges, knowledge of patient current condition, hospital course, and medical plan of care. Services: Services provided to patient in accordance with Admission requirements found in Title 42 Section 412.3 of the Code of Federal Regulations Patient History Date of Service: 03/07/22 Reason for admission: JOSE History of Present Illness: Patient is a 66-year-old female who came to the hospital with dysuria. Apparently her pessary is causing some postobstructive renal failure. This was removed in the emergency room. Patient had about a liter of urine output afterwards. She will be admitted to the hospital to monitor her renal function for observation. Allergies No Known Allergies Allergy (Verified 12/28/19 14:16) Home Medications: Insulin Glargine,Hum.rec.anlog [Basaglar Kwikpen U-100] 20 units SQ BID 12/28/19 Metoprolol Succinate [Toprol Xl] 100 mg PO BEDTIME 12/28/19 Losartan Potassium [Cozaar*] 50 mg PO BID #60 tablet 12/31/19 Glipizide [Glipizide ER] 10 mg PO DAILY 03/07/22 Simvastatin [Zocor] 20 mg PO BEDTIME 03/07/22 Triamterene/Hydrochlorothiazid [Triamterene-Hctz 37.5-25 mg Cp] 37.5 mg PO DAILY 03/07/22 Cefdinir [Cefdinir*] 300 mg PO BID #14 cap 03/08/22 - Past Medical/Surgical History Diabetic: Yes -: IDDM -: HTN -: bilateral cataract sx -: lap joseph -: nerve surgery rfa -: breast reduction - Family History Father Notes: Mother Medical History: Hypertension, Diabetes Notes: - Social History Alcohol use: No CD- Drugs: No Caffeine use: Yes Physical Examination - Studies Laboratory Data (last 24 hrs) 03/07/22 10:00: Sodium 136, Potassium 4.1, BUN 35 H, Creatinine 1.65 H, Glucose 278 H, Total Bilirubin 0.9, AST 22, ALT 27, Alkaline Phosphatase 132 H 03/07/22 10:00: WBC 9.30, Hgb 11.5 L, Hct 33.6 L, Plt Count 231 Assessment & Plan - Problems (Diagnosis) (1) JOSE (acute kidney injury) Current Visit: Yes Status: Acute (2) Problem with vaginal pessary Current Visit: Yes Status: Acute (3) Hypertension Current Visit: No Status: Acute (4) Neuropathy Current Visit: No Status: Acute (5) Type 2 diabetes mellitus Current Visit: No Status: Acute - Plan Plan: 1. Continue with IV hydration 2. Continue with pain control 3. Monitor renal function 4. Strict blood pressure and blood sugar control 5. GI and DVT prophylaxis - Advance Directives Does patient have a Living Will: Yes Does patient have a Durable POA for Healthcare: No
[2022-03-07] MEDS: NA CHLORIDE 0.9% 1,000 ML IV SCH ×2 (15:00→22:49)
[2022-03-07 15:16] LABS: SARS-CoV-2 Antigen Rapid Res Negative (Negative)
[2022-03-07 17:28] VITALS: BMI 26.6
[2022-03-07] MEDS ORDERED: D50W 25 GM/50 ML SYRINGE IV PRN (22:41)
[2022-03-07] MEDS ORDERED: GLUCAGON 1 MG/VIAL IM PRN (22:41)
[2022-03-07] MEDS ORDERED: D10W 125 ML IV PRN (22:44)
[2022-03-07] MEDS: INSULIN -REGULAR HUMAN 50 UNIT/0.5 ML ML SQ SCH (22:49)
[2022-03-08 05:58] LABS: Absolute Lymphocytes (CBC) 1.4 K/uL (0.7-4.9); Hematocrit 25.8 % (36.0-45.0); Lymphocytes % 21.2 % (15.3-44.8); MPV 7.7 fL (7.6-11.3); RBC Red Blood Cell Count 2.96 M/uL (3.86-4.86)
[2022-03-08 06:08] LABS: Albumin 2.7 g/dL (3.4-5.0); Bilirubin Total 0.6 mg/dL (0.2-1.0); Potassium 3.8 mmol/L (3.5-5.1); Protein, Total 5.9 g/dL (6.4-8.2)
[2022-03-08] MEDS: INSULIN -REGULAR HUMAN 50 UNIT/0.5 ML ML SQ SCH ×3 (07:30→16:39)
[2022-03-08] MEDS: NA CHLORIDE 0.9% 1,000 ML IV SCH ×2 (09:00→11:00)
[2022-03-08] MEDS ORDERED: PNEUMOCOCCAL VACCINE 0.5 ML IMVAC ONE (10:00)
--- NOTE | 2022-03-08 12:02 | P.CNS ---
Date of Consult: 03/08/22 Reason for Consult: JOSE Chief Complaint: JOSE History of Present Illness: A 66-year-old female who with PMhx of DM and HTn on losartan Hx of Uterine prolapse , DM CKD Cr 1.2 in June Pt came to the hospital with pelvic pain and unable to urinate pt had hx of Uterine prolapse , Passary placed on Wednesday, after that pt was complaining of lowe abdominal pain and inability to urinate passary was removed in the emergency room. Patient had about a liter of urine output afterwards. , In ER cr 1.6 ROS General : denies fever, chills, WT change weakness, insomnia HEENT: Denies dry, vision changes and headache Resp: denies SOB, cough or wheezes Cardiovascular: denied chest pain, palpitation , no SOB GI: denies abdominal pain, diarrhea or constipation : denies dysuria, urgency, foamy urine or blood tinged urine Musculoskeletal: denies muscle aches, joint pain Endo: denies polyuria and and polydipsia Extre: denies pain numbness and swelling Physical exam General: AAOx3, NAD, obese HEENT PERRLA, moist mucose membrane neck: supple, no elevated JVD CHEST; CTAB, no wheezes or rales HEART : RRR. Normal S1,2 no murmur or rub Abd: soft, Nt, palmer catheter Ext: no edema Skin : No rash #JOSE on CKD due to Obstructive uropathy cr improved to 1.5 renal diet renal dose medication #Obstructive uropathy likely due blocakge 2/2 vaginal passary Passary removed will dc palmer trial of Void #DM SSI #HTN Hold Losartan low salt diet Thanks for allowing me to participate in pt care , pt can be discharged from nephrology point of view if she pass vaginal passary , if not then can be discharged with palmer and f/u with [employer]ISTER FRAME TENDER as an OP Total time spent 45 minutes including documentation, reviewing labs , placing orders and discussing with medical team Allergies No Known Allergies Allergy (Verified 12/28/19 14:16) Home Medications: Insulin Glargine,Hum.rec.anlog [Basaglar Kwikpen U-100] 20 units SQ BID 12/28/19 Metoprolol Succinate [Toprol Xl] 100 mg PO BEDTIME 12/28/19 Losartan Potassium [Cozaar*] 50 mg PO BID #60 tablet 12/31/19 Glipizide [Glipizide ER] 10 mg PO DAILY 03/07/22 Simvastatin [Zocor] 20 mg PO BEDTIME 03/07/22 Triamterene/Hydrochlorothiazid [Triamterene-Hctz 37.5-25 mg Cp] 37.5 mg PO DAILY 03/07/22 - Past Medical/Surgical History Diabetic: Yes -: IDDM -: HTN -: bilateral cataract sx -: lap joseph -: nerve surgery rfa -: breast reduction - Family History Father Notes: Mother Medical History: Hypertension, Diabetes Notes: - Social History Alcohol use: No CD- Drugs: No Caffeine use: Yes Physical Examination Temp Pulse Resp BP Pulse Ox 98.1 F 78 18 155/75 H 100 03/08/22 08:00 03/08/22 08:00 03/08/22 08:00 03/08/22 08:00 03/08/22 08:00
[2022-03-08 12:43] VITALS: O2SAT 99
[2022-03-08 16:33] VITALS: BP 167/76; TEMP 98.1
--- NOTE | 2022-03-08 17:46 | P.DS ---
Discharge Date: 03/08/22 Disposition: ROUTINE DISCHARGE Discharge Condition: GOOD Reason for Admission: JOSE Consultations: Nephrology - Problems (1) JOSE (acute kidney injury) Current Visit: Yes Status: Acute (2) Problem with vaginal pessary Current Visit: Yes Status: Acute (3) Hypertension Current Visit: No Status: Acute (4) Neuropathy Current Visit: No Status: Acute (5) Type 2 diabetes mellitus Current Visit: No Status: Acute Brief History of Present Illness: Patient is a 66-year-old female who came to the hospital with dysuria. Apparently her pessary is causing some postobstructive renal failure. This was removed in the emergency room. Patient had about a liter of urine output afterwards. She will be admitted to the hospital to monitor her renal function for observation. Hospital Course: Patient is currently doing well. Renal function is stable. At this time, patient is stable for discharge with outpatient follow-up. Vital Signs/Physical Exam: Temp Pulse Resp BP Pulse Ox 98.1 F 83 18 167/76 H 99 03/08/22 16:00 03/08/22 16:00 03/08/22 16:00 03/08/22 16:00 03/08/22 16:00 General: Alert, In no apparent distress, Oriented x3 Laboratory Data at Discharge: WBC 6.70 K/uL (4.3-10.9) 03/08/22 05:39 Hgb 8.8 g/dL (12.0-15.0) L D 03/08/22 05:39 Hct 25.8 % (36.0-45.0) L 03/08/22 05:39 Plt Count 170 K/uL (152-406) D 03/08/22 05:39 Sodium 141 mmol/L (136-145) D 03/08/22 05:39 Potassium 3.8 mmol/L (3.5-5.1) 03/08/22 05:39 BUN 33 mg/dL (7-18) H 03/08/22 05:39 Creatinine 1.55 mg/dL (0.55-1.3) H 03/08/22 05:39 Glucose 150 mg/dL (74-106) H 03/08/22 05:39 Total Bilirubin 0.6 mg/dL (0.2-1.0) 03/08/22 05:39 AST 14 U/L (15-37) L 03/08/22 05:39 ALT 21 U/L (12-78) 03/08/22 05:39 Alkaline Phosphatase 98 U/L (45-117) D 03/08/22 05:39 Home Medications: Insulin Glargine,Hum.rec.anlog [Basaglar Kwikpen U-100] 20 units SQ BID 12/28/19 Metoprolol Succinate [Toprol Xl] 100 mg PO BEDTIME 12/28/19 Losartan Potassium [Cozaar*] 50 mg PO BID #60 tablet 12/31/19 Glipizide [Glipizide ER] 10 mg PO DAILY 03/07/22 Simvastatin [Zocor] 20 mg PO BEDTIME 03/07/22 Triamterene/Hydrochlorothiazid [Triamterene-Hctz 37.5-25 mg Cp] 37.5 mg PO DAILY 03/07/22 Cefdinir [Cefdinir*] 300 mg PO BID #14 cap 03/08/22 New Medications: Cefdinir [Cefdinir*] 300 mg PO BID #14 cap Physician Discharge Instructions: -DC IV and DC home -Follow-up with PCP in 1 to 2 weeks -Follow-up with Dr. Mendieta scheduled -Follow-up with Nephrology in 1-2 weeks -Please call Dr. Cm at [phone] if any questions regarding hospital stay -Please call nursing station at [phone] if any nursing or medication questions -Return to the emergency room if symptoms worsen Diet: AHA Activity: Fall precautions Followup: Olivia Mendieta MD [ACTIVE - CAN ADMIT] - (call to schedule an appointment) NONE,NONE [Primary Care Provider] - 1-2 Weeks (Call to schedule an appointment) Time spent managing pt's care (in minutes): 35
--- NOTE | 2022-03-09 13:51 | EKG ---
Test Date: 2022-03-07 Test Time: 16:35:00 Acoustic Intelligence Specialist: KAYE MEASUREMENT RESULTS: Intervals: Rate: 81 LA: 130 QRSD: 94 QT: 396 QTc: 460 [place]: P: 29 LA: 130 QRS: -10 T: 50 INTERPRETIVE STATEMENTS: Normal sinus rhythm Septal infarct, age undetermined Abnormal ECG No previous ECG available for comparison Electronically Signed On 03-09-22 13:49:28 VISUAL C DEVELOPER by Juan Manuel Segundo
== END 2022-03-08 17:45 | disposition home or self-care (01) ==
LOC: ER 09:16 → ERHOLD 14:07 → 4TH 22:02
PROVIDERS: ADMIT Hospitalist; ATTEND Hospitalist
DX: N17.9 Acute kidney failure, unspecified (principal); I10 Essential (primary) hypertension; G62.9 Polyneuropathy, unspecified; E11.9 Type 2 diabetes mellitus without complications; R30.0 Dysuria; N81.4 Uterovaginal prolapse, unspecified; T85.9XXA Unspecified complication of internal prosthetic device, implant and graft, initial encounter; Z20.822 Contact with and (suspected) exposure to COVID-19
CPT/HCPCS: 96365; 96361; 87088; 85025 ×2; 87086; 36415; 82947 ×3; 84484; 80053 ×2; 76377; 74176; 74018; 71045; 51702; 99285; 87811; J1815 ×3; J7030 ×3; 81003; 81015; 93005; G0378; J2270; J2405

== ENCOUNTER 2022-03-24 09:10 | Day surgery (SDC) | payer OTHER ==
[2022-03-24 09:27] LABS: Transitional Epithelial <5 /HPF (None Seen); Urine Bacteria <20 /HPF (<20); Urine Bilirubin NEGATIVE (Negative); Urine Blood 3+ (OVER) (Negative); Urine Clarity Clear (Clear); Urine Color Light-Yellow (Yellow); Urine Glucose TRACE (Negative); Urine Protein 1+ (Negative); Urine RBC 21-50 /HPF (None Seen); Urine Urobilinogen Normal (Normal)
[2022-03-24 09:30] LABS: Potassium 4.6 mmol/L (3.5-5.1)
[2022-03-24 09:43] LABS: Absolute Lymphocytes (CBC) 1.2 K/uL (0.7-4.9); Hematocrit 31.4 % (36.0-45.0); Lymphocytes % 25.7 % (15.3-44.8); MCV 87.4 fL (80-100); MPV 7.9 fL (7.6-11.3)
[2022-03-24 09:47] LABS: Protime INR 1.05
[2022-03-24] MEDS ORDERED: NA CHLORIDE 0.9% 1,000 ML ONE ×2 (09:47→15:31)
[2022-03-24 10:17] VITALS: O2SAT 100
[2022-03-24] MEDS: CEFAZOLIN SODIUM 2 GM/VIAL ONE ×2 (11:40→12:40)
[2022-03-24] MEDS ORDERED: NA CHLORIDE 0.9% 100 ML IV ONE (12:19)
[2022-03-24] MEDS ORDERED: CEFAZOLIN SODIUM 1 GM/VIAL ONE ×2 (12:20→20:45)
[2022-03-24] MEDS ORDERED: FENTANYL CITR 100 MCG/2 ML ONE (12:23)
[2022-03-24] MEDS ORDERED: LIDOCAINE 2% MPF 5 ML VIAL ONE (12:24)
[2022-03-24] MEDS ORDERED: MIDAZOLAM HCL 2 MG/2 ML INJ ONE (12:24)
[2022-03-24] MEDS ORDERED: propofoL 200 MG/20 ML VIAL IV ONE (12:24)
[2022-03-24] MEDS ORDERED: ONDANSETRON 4 MG/2 ML VIAL ONE (12:25)
[2022-03-24] MEDS ORDERED: GLYCOPYRROLATE 0.2 MG/ML SYR ONE ×3 (12:25→12:27)
[2022-03-24] MEDS ORDERED: ROCURONIUM 50 MG/5 ML VIAL IV ONE (12:25)
[2022-03-24] MEDS ORDERED: NEOSTIGMINE 1 MG/ML -5 ML ONE (12:26)
[2022-03-24] MEDS ORDERED: EPHEDRINE SULF 50 MG/ML VIAL ONE (13:30)
[2022-03-24] MEDS: VASOPRESSIN 20 UNIT/ML VIAL ONE ×2 (13:40→15:18)
[2022-03-24] MEDS ORDERED: VASOPRESSIN 20 UNIT/ML VIAL ONE (15:23)
[2022-03-24] MEDS ORDERED: VECURONIUM 10 MG/VIAL IV ONE (15:26)
[2022-03-24 16:31] LABS: SARS-CoV-2 Antigen Rapid Res Negative (Negative)
[2022-03-24] MEDS ORDERED: IBUPROFEN 600 MG TAB PO PRN (16:46)
[2022-03-24] MEDS ORDERED: ACETAMINOPHEN 500 MG TAB PO PRN (16:46)
[2022-03-24] MEDS ORDERED: PROMETHAZINE 25 MG TABLET PO PRN (16:47)
[2022-03-24] MEDS: LOSARTAN POTASSIUM 50 MG TABLET PO SCH (18:15)
[2022-03-24 18:47] VITALS: BMI 26.6
[2022-03-24] MEDS ORDERED: HYDRALAZINE HCL 20 MG/ML VIAL IV PRN (19:32)
--- NOTE | 2022-03-24 19:42 | P.CNS ---
Date of Consult: 03/24/22 Reason for Consult: Medical management Requesting Physician: Olivia Mendieta Primary Care Provider: Dr. Rivera Chief Complaint: Hypertension History of Present Illness: 66-year-old female with history of insulin-dependent diabetes, hypertension, hyperlipidemia was brought into the hospital for surgical repair of uterovaginal prolapse and stress incontinence, during her postoperative period patient was no bertin to be markedly hypertensive with blood pressure in the 180s to 190s systolic, patient's surgeon requested hospitalist consult for management of hypertension. Patient was recently hospitalized on 03/07/2022 for urinary retention secondary to pessary, JOSE. At that time patient had pessary removed was able to void without difficulty, her initial creatinine at that time was 1.65, it decreased to 1.5 the next day on 03/08/2021 patient was discharged. Patient labs performed preoperatively today creatinine is 1.56. Patient is asymptomatic from her blood pressure denies any headache, chest pain, dizziness, blurred vision. She reports her blood pressure frequently dozes during hospitalizations she was given her p.o. medications prior to my seeing her which include losartan 50 mg p.o. twice daily, Toprol succinate 100 mg p.o. at bedtime. - Past Medical/Surgical History Diabetic: Yes -: IDDM -: HTN -: HLD -: bilateral cataract sx -: lap joseph -: nerve surgery rfa -: breast reduction -: Uterovaginal prolapse repair Psychosocial/ Personal History: Patient lives at home with family - Family History Father Notes: Mother Medical History: Hypertension, Diabetes Notes: - Social History Smoking Status: Never smoker Alcohol use: No CD- Drugs: No Caffeine use: Yes Place of Residence: Home <Paulie Robles - Last Filed: 03/24/22 19:37> <Rosendo Hansen - Last Filed: 03/25/22 10:34> Allergies No Known Allergies Allergy (Verified 03/24/22 08:39) Home Medications: Insulin Glargine,Hum.rec.anlog [Basaglar Kwikpen U-100] 20 units SQ BID 12/28/19 Metoprolol Succinate [Toprol Xl] 100 mg PO BEDTIME 12/28/19 Losartan Potassium [Cozaar*] 50 mg PO BID #60 tablet 12/31/19 Glipizide [Glipizide ER] 10 mg PO DAILY 03/07/22 Simvastatin [Zocor] 20 mg PO BEDTIME 03/07/22 Triamterene/Hydrochlorothiazid [Triamterene-Hctz 37.5-25 mg Cp] 37.5 mg PO DAILY 03/07/22 Cefdinir [Cefdinir*] 300 mg PO BID #14 cap 03/08/22 Enoxaparin Sodium [Lovenox 40 MG INJ] 40 mg SQ DAILY #14 ml 03/25/22 Review of Systems Unremarkable <Paulie Robles - Last Filed: 03/24/22 19:37> Physical Examination Temp Pulse Resp BP Pulse Ox 97 F 61 18 193/60 H 03/24/22 16:53 03/24/22 18:08 03/24/22 16:53 03/24/22 18:08 General: Alert, In no apparent distress, Oriented x3 HEENT: Atraumatic, PERRLA, Mucous membr. moist/pink, EOMI, Sclerae nonicteric Neck: Supple, 2+ carotid pulse no bruit, No LAD, Without JVD or thyroid abnormality Respiratory: Clear to auscultation bilaterally, Normal air movement Cardiovascular: Regular rate/rhythm, Normal S1 S2 Gastrointestinal: Normal bowel sounds, No tenderness Musculoskeletal: No tenderness Integumentary: No rashes Neurological: Normal gait, Normal speech, Normal tone, Normal affect Lymphatics: No axilla or inguinal lymphadenopathy Urinary: Sebastian catheter Laboratory Data (last 24 hrs) 03/24/22 08:55: Sodium 139, Potassium 4.6, BUN 30 H, Creatinine 1.56 H, Glucose 186 H 03/24/22 08:55: PT 11.6, INR 1.05, APTT 33.9 03/24/22 08:50: WBC 4.80, Hgb 10.7 L, Hct 31.4 L, Plt Count 232 <Paulie Robles - Last Filed: 03/24/22 19:37> Temp Pulse Resp BP Pulse Ox 98.9 F 70 18 166/70 H 99 03/25/22 07:50 03/25/22 07:50 03/25/22 07:50 03/25/22 07:50 03/25/22 07:50 Laboratory Data (last 24 hrs) 03/25/22 04:25: Sodium 139, Potassium 3.9 D, BUN 19 H, Creatinine 1.17 H, Glucose 122 H <Rosendo Hansen - Last Filed: 03/25/22 10:34> Conclusions/Impression: Assessment: Primary hypertension Diabetes mellitus type IIinsulin-dependent Hyperlipidemia Uterovaginal prolapse/stress incontinence Plan: Primary hypertension: Patient received her home medications recently including metoprolol 100 mg p.o. which she takes nightly and losartan 50 mg which she takes twice daily. Patient asymptomatic from her hypertension at this time. Added gentle IV fluids to assess for possible mild improvement in creatinine, if creatinine worsens in the morning may need to consider holding losartan, adding nephrology consult. As needed hydralazine for marked hypertension. Diabetes mellitus type IIinsulin-dependent: Continue home medication. Patient is prescribed insulin glargine 20 units subcu twice daily but she reports she t ypically only takes it daily every few days when her blood sugar is running high. Hyperlipidemia: Continue home meds Uterovaginal prolapse/stress incontinence: Further management per ORCHESTRA MUSICIAN surgery. DVT PPX: Per [employer]CHESTRA [employer]ICIAN surgery Code status: Full Critical Care: No Time Spent Managing Pts care (In Minutes): 35 <Paulie Robles - Last Filed: 03/24/22 19:37> Physician Review: Patient Assessed, Agree with Above Assessment and Plan <Rosendo Hansen - Last Filed: 03/25/22 10:34>
[2022-03-24] MEDS ORDERED: Ringers Lactate 1,000 ML IV SCH (20:00)
[2022-03-24] MEDS ORDERED: NA CHLORIDE 0.9% 100 ML ONE (20:47)
[2022-03-24] MEDS: CEFAZOLIN 1 GM in NA CHLORIDE 0.9% 50 ML IVPB SCH (20:49)
[2022-03-24] MEDS ORDERED: METOPROLOL XL 100 MG TAB PO SCH (21:00)
[2022-03-24] MEDS: MORPHINE 2 MG/ML SYR IV PRN (21:01)
[2022-03-25] MEDS: MORPHINE 2 MG/ML SYR IV PRN
[2022-03-25 04:57] LABS: Potassium 3.9 mmol/L (3.5-5.1)
[2022-03-25] MEDS ORDERED: D50W 25 GM/50 ML SYRINGE IV PRN (05:26)
[2022-03-25] MEDS ORDERED: GLUCAGON 1 MG/VIAL IM PRN (05:26)
[2022-03-25] MEDS ORDERED: NA CHLORIDE 0.9% 100 ML ONE (07:24)
[2022-03-25] MEDS ORDERED: CEFAZOLIN SODIUM 1 GM/VIAL ONE (07:24)
[2022-03-25] MEDS: CEFAZOLIN 1 GM in NA CHLORIDE 0.9% 50 ML IVPB SCH (07:24)
[2022-03-25] MEDS ORDERED: INSULIN -REGULAR HUMAN 50 UNIT/0.5 ML ML SQ SCH (07:30)
[2022-03-25] MEDS ORDERED: HEPARIN 5000 UNIT/ML 1 ML VIAL SQ ONE (07:43)
[2022-03-25] MEDS: LOSARTAN POTASSIUM 50 MG TABLET PO SCH (07:47)
[2022-03-25] MEDS ORDERED: INFLUENZA VACCINE (for 6+ mo) 0.5 ML DOSE IMVAC ONE (08:00)
--- NOTE | 2022-03-25 09:32 | OP ---
Date of Procedure: 03/24/2022 Surgeon: Olivia Mendieta MD Waiter/Waitress Tourist Class: Bianca Grissom. Preoperative Diagnoses: Complete uterovaginal prolapse, stress urinary incontinence, incomplete blad mona emptying, and incomplete bowel emptying. Constipation from outlet obstruction. Postoperative Diagnoses: At this time, stage IV uterovaginal prolapse, stress urinary incontinence, perineocele, incomplete bladder emptying, and constipation from outlet obstruction. Procedures Performed: 1.Endometrial biopsy. 2.LeFort partial colpocleisis. 3.Posterior repair and perineocele repair. 4.Mid urethral sling transobturator approach (TVT-O cystoscopy). Estimated Blood Loss: Less than 100. Urine Output: 180. Specimens: Endometrial biopsy. Complications: No complications. Drains: Sebastian catheter. Condition: Stable. Findings: Pop-Q -1, + 2, + 4, 7, 10, and 9, 0, 0, +1. Erosion on the cervix was noted from external trauma due to contact with the surfaces from her prolapse. However, endometrial biopsy was performe d prior to the colpocleisis. After colpocleisis, there was also significant perineocele and distal posterior wall defect that had to be repaired and reattached to the perineum and then the perineocele repair was performed in order to minimize the risk of recurrence. Indications For Surgery: The patient is a 66-year-old female with significant prolapse and bulge sym ptoms, incomplete bladder emptying, bladder infections, and bowel dysfunction as well. She has a bal ance disorder, walks with a walker. No neurological diagnoses for this patient, but she had medical clearance from her primary care and she was treated for a bladder infection recently, so she was trie d with pessary for treatment for prolapse. The ring pessary caused obstruction for waiting and she h ad to go to the ER for this to be removed. Her creatinine had bumped up and she was hydrated well an d then discharged home. Her urine infection had cleared. Her cystoscopy was negative. However, wit h at least 500 in her bladder, she still was unable to empty and bowel emptying was also difficult. So consented her for surgery and the patient wanted to proceed with this. She had a second pessary p laced, a Gellhorn. The first one was the ring. The Gellhorn pessary did not stay and then so yester day, which was the day before her surgery, it fell out and patient was very frustrated and wanted to proceed with surgery. So, she was brought into the hospital electively in a semi urgent fashion for colpocleisis and repair of the peroneus and a mid urethral sling. Description Of Procedure: After informed consent was verified, the patient was explained the options of reconstruction and closure. She wanted to proceed as closure as she has not been sexually active and does not have plans to be. She understood that the risk of recurrence with this procedure would be least and it will be most conservative procedure for her and she was consented. Her friend was glendy keller by her bedside. Once this was all verified, she was taken back to OR. 2 g of Ancef were given. SCDs were placed. Time-out was done. The patient was given general anesth esia after placing her in a supine fashion on the operating table. Then, she was placed in dorsal li thotomy position. Abdomen, vulva, vagina, and perineum prepped and draped in a sterile fashion. Fol ey was placed to drain the bladder, was at least 700 in her bladder and this was drained. Sebsatian was retracted superiorly and clamped. The pop-Q was as above, so a quadrilateral was drawn on the anterior compartment, leaving space for a channel right by the cervix and on the sidewalls, and t hen the posterior defect, which was larger with a detachment of the posterior wall from the perineum as well as a large posterior enterocele was noted, so a longer incision was made, which was also quad rilateral drawn on the posterior wall to de-epithelialize the vaginal garrett. An endometrial biopsy was performed with a Pipelle. Two 2 passes were taken and handed out. The spe cimen was very minimal. Then, after injecting dilute vasopressin 20 units and 40 cc of normal saline , 30 cc was injected in the anterior compartment, and the quadrangle was bisected into 2 halves and t hen the vaginal epithelium was incised with a 15 blade in all 3 directions, starting from the distal most aspect. The vaginal epithelium was peeled off the underlying sub-epithelium and connective tiss ue, leaving as much behind as possible. Then, some similar stripping was performed on the other side of the anterior compartment, then going to the back, another 30 cc of vasopressin was injected and s tripping of the posterior vaginal epithelium was done as well. This was done at least 2-3 cm above t he perineum or the hymen. Then from here, plan was to do the distal posterior wall defect repair aft er closing the vaginal canal. There was good connective tissue in the distal part way here, so there was a good connective tissue in the anterior distal wall as well, so plan was to connect these two. A 0 Vicryl suture was taken to run continuously to create a channel in the center and on to the right side, and then the left channel was completed. Once the anterior-posterior garrett were sutured toget her with 2-0 PDS in interrupted fashion in 2 layers, then, vaginal epithelium in a transverse fashion was closed, connecting the connective tissues and brought them together with a 2-0 Vicryl suture and in [id number] at least 5 were placed. Once this was done, the bladder was attached to the Sebastian to drain into the posterior compartment, a brinda-shaped incision was made, a triangle in the posterior wall. The triangle on the perineum angel sed after dilute vasopressin was injected. The perineal skin was deepithelialized as well as the vag inal epithelium. Underlying connective tissue was dissected away from the overlying epithelium on th e sides. The perineum was dissected open. The distal posterior wall connective tissue was plicated from side to side as there was an avulsion on the left lateral aspect distally. This was reconnected . Then, the perineum was reconstructed with 2-0 Vicryl in an interrupted fashion. The distal connec tive tissue was attached the perineum in a transverse fashion with [id number] 2-0 Vicryl sutures . Then, the vaginal epithelium was slightly trimmed, but brought down and closed in a transverse fas hion to the perineal skin. Then, the perineal skin incision was extended to open the perineocele and this was dissected laterally opening up all the scar tissue and sutures from side to side were place d in the presumed the scar tissue of the deep transverse perineum. Once the perineum was well rebuil t, the entire incision was closed with the help of 3-0 Vicryl in 2 layers. Rectal exam was performed with good thickness of the perineum, was lifted up, and the genital hiatus was down to 4 cm from ___ . There was a good support. Levators were plicated as well with 2 interrupted sutures prior to closure, as this was satisfactory, attention was directed to the sling. picked up 2 Allis clamps. Dilute vasopressin was injected, 10 cc in the center and on bot h sides. Incision was made with a 10 and 15 blade and dissection under the connective tissue taken t o the obturator space and once the obturator membrane was perforated, the track was opened up to lay the mesh flap. Then on the opposite side, similar dissection was performed. Then, wing guide was esdras nagel. The spike was passed without any problems on the right side; on the left side, slight difficult y getting past the pubic ramus. Once this was done, after membrane was perforated, the wing guide wa s placed mostly in the created track and then the spike was passed without any problems. The plastic dilators were cut. Tensioning was done with the help of an 8-Andorran dilator. The plastic sheaths w ere pulled out. Once tensioning was appropriate, the dilator was removed and they had good appositio n without any pillowing at the mid urethral level and the mesh was flat. The incision was closed wit h the help of 3-0 Vicryl in a continuous running fashion mesh. Mesh was trimmed at the groins and in cisions closed with the help of Dermabond. Then cystoscopy was performed with 30-degree lens, normal saline, and normal jets of urine from both ureteric orifices. The bladder appeared to have no traum a from the sling. No sutures, foreign bodies, and so the bladder was drained, Sebastian was replaced, an d she was recovered from anesthesia and taken to PACU in stable condition. Estimated Blood Loss: Less than 100. Urine Output: 180. Debriefed the patient's friend about her procedures, will be overnight admitted for observation and v oiding trial in the morning. RAFA/LINETTE Voice ID: [id number] Report ID: [id number]
[2022-03-25 09:50] VITALS: BP 166/70; TEMP 98.9
--- NOTE | 2022-03-25 10:39 | P.PN ---
Subjective Date of Service: 03/25/22 Primary Care Provider: Dr. Rivera Chief Complaint: Hypertension No acute events overnight. Blood pressure has improved with resumption of her home medications. Her pain is well-controlled. She denies any additional concerns this morning. Review of Systems 10-point ROS is otherwise unremarkable Genitourinary: Incontinence Physical Examination - Vital Signs Temperature: 98.9 F Blood Pressure: 166/70 Pulse: 70 Respirations: 18 Pulse Ox (%): 99 - Physical Exam General: Alert, In no apparent distress, Oriented x3 HEENT: Atraumatic, Mucous membr. moist/pink, EOMI, Sclerae nonicteric Neck: JVD not distended Respiratory: Clear to auscultation bilaterally, Normal air movement Cardiovascular: No edema, Regular rate/rhythm, Normal S1 S2, No gallops, No rubs, No murmurs Gastrointestinal: Normal bowel sounds, Soft and benign, Non-distended, No tenderness, No rebound, No guarding Musculoskeletal: No clubbing Integumentary: No rashes Neurological: Normal speech, Cranial nerves 3-12 intact, Normal affect Urinary: Sebastian catheter - Studies Laboratory Data (last 24 hrs) 03/25/22 04:25: Sodium 139, Potassium 3.9 D, BUN 19 H, Creatinine 1.17 H, Glucose 122 H Assessment And Plan - Plan DIAGNOSES: # Hypertensive Urgency # KDIGO Stage I Acute Kidney Injury (resolved) # Hyperglycemia in Type II Diabetes Mellitus # Complete Stage IV Ureterovaginal Prolapse, Perineocele, and Stress Incontinence s/p Endometrial Biopsy, [place] Partial Colpocleisis, Posterior/Per ineocele Repair and Mid-Uretheral Sling (03/24/2022) # Microscopic Hematuria # Dyslipidemia RECOMMENDATIONS: - Blood pressure and creatinine have improved - Continue home medications and she was advised to keep a blood pressure log at home - Continue home insulin regimen and statin - She should follow-up with her PCP (Dr. Rivera) in 1 week for a repeat blood p ressure, repeat BMP (to monitor creatinine), and repeat urinalysis (to follow-up her microscopic hematuria) - If hematuria is persistent, she will require further evaluation for possible underling urology malignancy with PCP +/- Urology - Otherwise, she is cleared from a Medicine standpoint to be discharged home with outpatient follow-up - Remainder of Weight Guesser Surgery care per primary team These recommendations were discussed with Ms. Cornelius, who verbalized understanding. Thank you for this consultation. Internal Medicine will continue to follow along while she is hospitalized. Rosendo Hansen M.D.
== END 2022-03-25 12:00 | disposition home or self-care (01) ==
LOC: OR 09:10 → 2ND-WC 16:36 → OR 03-25 12:00
PROVIDERS: ATTEND Obstetrics & Gynecology
PROC: 0JQC0ZZ Repair Pelvic Region Subcutaneous Tissue and Fascia, Open Approach (ICD-10-PCS; 2022-03-24)
PROC: 0HQ9XZZ Repair Perineum Skin, External Approach (ICD-10-PCS; 2022-03-24)
PROC: 0TSD0ZZ Reposition Urethra, Open Approach (ICD-10-PCS; 2022-03-24)
PROC: 0UDB7ZX Extraction of Endometrium, Via Natural or Artificial Opening, Diagnostic (ICD-10-PCS; 2022-03-24)
PROC: 0ULG7ZZ Occlusion of Vagina, Via Natural or Artificial Opening (ICD-10-PCS; principal; 2022-03-24 12:30)
DX: N81.3 Complete uterovaginal prolapse (principal); N39.46 Mixed incontinence; N39.3 Stress incontinence (female) (male); R33.9 Retention of urine, unspecified; K59.00 Constipation, unspecified; K56.699 Other intestinal obstruction unspecified as to partial versus complete obstruction; I10 Essential (primary) hypertension; E11.9 Type 2 diabetes mellitus without complications; E78.5 Hyperlipidemia, unspecified; Z79.4 Long term (current) use of insulin; Z20.822 Contact with and (suspected) exposure to COVID-19
CPT/HCPCS: 87088; 85025; 81001; 87086; 80048 ×2; 36415 ×2; 86900; 86850; 85610; 86901; 82947; 88305; 85730; 87811; 57120; 57250; 57288; 58100; J2704; J1644; J2001; J2250; J3010; J2270 ×2; J2710; J7120; J7030 ×2; J2405; J0690 ×3; J1610

== ENCOUNTER 2024-01-29 02:04 | Emergency (ER) | payer OTHER ==
--- NOTE | 2024-01-29 04:14 | RAD REPORT ---
EXAM DESCRIPTION: XR CHEST 1 VIEW CLINICAL HISTORY: SOB COMPARISON: None TECHNIQUE: Single AP view of the chest. FINDINGS: Lung volumes adequate. Cardiac silhouette is enlarged. No pneumothorax. Moderate bilateral pleural effusions. Diffuse bilateral patchy airspace disease. No acute bony finding. IMPRESSION: 1. Diffuse bilateral patchy airspace disease, concerning for atypical/viral pneumonia. 2. Moderate bilateral pleural effusions. 3. Enlarged cardiac silhouette. Electronically signed by: Charli Cervantes MD 01/29/2024 03:05 AM CDT Z9 Due to temporary technical issues with the [employer] reporting system, reports are being miguel d by the in-house radiologist without review as a courtesy to ensure prompt reporting the interpreting radiologist is fully responsible for the content of the report. Transcribed Date/Time: 01/29/2024 4:13 AM
[2024-01-29] MEDS ORDERED: Levofloxacin 750mg IV 750 MG/150 ML BAG IV ONE (04:18)
[2024-01-29 04:28] LABS: Arterial Blood Carboxyhemoglob 0.7 % (0-1.5); Blood Gas THB 12.7 g/dl (12-18); Blood O2 Saturation 54.4 % (92-98.5)
[2024-01-29 04:36] LABS: Absolute Basophils 0.1 K/uL (0-0.5); Absolute Eosinophils 0.1 K/uL (0-0.5); Absolute Lymphocytes (CBC) 0.9 K/uL (0.7-4.9); Absolute Monocytes 0.5 K/uL (0.1-1.3); Basophils % 0.6 % (0-1.3); Eosinophils % 0.5 % (0-4.4); Hematocrit 34.9 % (36.0-45.0); Hemoglobin 11.5 g/dL (12.0-15.0); Lymphocytes % 8.2 % (15.3-44.8); MPV 8.9 fL (7.6-11.3); Monocytes % 4.6 % (3.3-12.3); Neutrophils % 86.1 % (41.7-73.7); Platelets 168 thou/uL (152-406); RBC Red Blood Cell Count 3.83 M/uL (3.86-4.86)
[2024-01-29 04:38] LABS: Albumin 3.3 g/dL (3.4-5.0); Albumin/Globulin Ratio 0.8 (1.1-1.8); Anion Gap 11.5 mEq/L (5.0-15.0); Bilirubin Direct 0.2 mg/dL (0-0.2); Bilirubin Indirect, Calculated 0.5 mg/dL (0.2-0.8); Bilirubin Total 0.7 mg/dL (0.2-1.0); Globulin 4.1 g/dL (2.3-3.5); Potassium 4.5 mEq/L (3.5-5.1); Protein, Total 7.4 g/dL (6.4-8.2)
[2024-01-29 04:39] LABS: Troponin High Sensitivity 396.2 pg/mL (<58.9)
[2024-01-29 04:55] LABS: Blood Morphology Comment NOT SEEN (NOT SEEN); Platelet Estimate ADEQ; White Blood Cell Scan OK (OK)
[2024-01-29 04:55] LABS: PT Prothrombin Time 10.8 SECONDS (9.4-12.5); Protime INR 0.96
[2024-01-29] MEDS ORDERED: HEPARIN 5000 UNIT/ML 1 ML VIAL ONE (05:21)
[2024-01-29] MEDS ORDERED: HEPARIN/D5W 25,000 UNIT/500 ML BAG IV ONE (05:22)
[2024-01-29] MEDS ORDERED: ASPIRIN 325 MG TAB ONE (05:27)
--- NOTE | 2024-01-29 05:49 | EDPHYS ---
Physician Documentation [facility] Name: Mary Shields Age: 68 yrs Sex: Female : 1955 Arrival Date: 01/29/2024 Time: 02:04 Bed 3 Private MD: ED Physician Praneeth Chase HPI: 01/28 03:59 This 68 yrs old Female presents to ER via EMS with complaints of Shortness Of Breath. rt 03:59 Patient presents to the ED with an acute onset of shortness of breath that occurred rt just prior to arrival. Patient woke up feeling that she could not breathe. She felt well when she went to bed. Denies chest pain. Heema states that her oxygen saturations were in the 60s, improved with CPAP. Denies other acute complaints, symptoms are severe in severity, no other aggravating or alleviating factors.. Historical: - Allergies: 02:25 No Known Allergies; al5 - Home Meds: 02:25 Brilinta 90 mg oral tablet daily [Active]; metoprolol succinate oral daily [Active]; al5 rosuvastatin 10 mg oral tablet daily [Active]; losartan 100 mg oral tablet twice a day [Active]; hydrochlorothiazide 12.5 mg Oral tablet daily [Active]; - PMHx: 02:25 diabetes mellitus; Hypertensive disorder; Hypercholesterolemia; al5 - PSHx: 02:25 Stented artery; al5 - Immunization history:: Adult Immunizations up to date. - Infectious Disease History:: Denies. - Social history:: Smoking status: unknown. - Family history:: not pertinent. ROS: 03:59 Constitutional: Negative for fever, chills, and weight loss, Cardiovascular: Negative rt for chest pain, palpitations, and edema, Abdomen/GI: Negative for abdominal pain, nausea, vomiting, diarrhea, and constipation, MS/Extremity: Negative for injury and deformity, Skin: Negative for injury, rash, and discoloration, Neuro: Negative for headache, weakness, numbness, tingling, and seizure, 03:59 Respiratory: Positive for cough, shortness of breath, Exam: 03:59 Constitutional: This is a well developed, well nourished patient who is awake, alert, rt and in no acute distress. Head/Face: Normocephalic, atraumatic. Chest/axilla: Normal chest wall appearance and motion. Nontender with no deformity. No lesions are appreciated. Cardiovascular: Regular rate and rhythm with a normal S1 and S2. No gallops, murmurs, or rubs. Normal PMI, no JVD. No pulse deficits. Abdomen/GI: Soft, non-tender, with normal bowel sounds. No distension or tympany. No guarding or rebound. No evidence of tenderness throughout. Skin: Warm, dry with normal turgor. Normal color with no rashes, no lesions, and no evidence of cellulitis. MS/ Extremity: Pulses equal, no cyanosis. Neurovascular intact. Full, normal range of motion. Neuro: Awake and alert, GCS 15, oriented to person, place, time, and situation. Cranial nerves II-XII grossly intact. Motor strength 5/5 in all extremities. Sensory grossly intact. Cerebellar exam normal. Normal gait. 03:59 ECG was reviewed by the Attending Physician. 03:59 Respiratory: Crackles heard on all lung baca, moderate respiratory distress, 05:04 ECG was reviewed by the Attending Physician. rt Vital Signs: 02:25 BP 188 / 97; Pulse 111; Resp 24; Temp 97.8; Pulse Ox 100% on BiPAP; Weight 68.49 kg; al5 Height 5 ft. 5 in. ; 02:34 BP 174 / 84; Pulse 103; Resp 20; Pulse Ox 97% ; dd2 03:35 BP 143 / 85; Pulse 101; Resp 20; Pulse Ox 99% on BiPAP; dd2 04:35 BP 126 / 63; Pulse 93; Resp 20; Pulse Ox 100% on BiPAP; dd2 05:20 BP 132 / 67; Pulse 92; Resp 18; Pulse Ox 20% ; dd2 06:19 BP 149 / 69; Pulse 90; Resp 20; Temp 98.2; Pulse Ox 100% ; dd2 07:15 BP 155 / 78; Pulse 90; Resp 18; Pulse Ox 100% on BiPAP; ph 02:25 Body Mass Index 25.13 (68.49 kg, 165.1 cm) al5 Fiordaliza Coma Score: 02:34 Eye Response: spontaneous(4). Motor Response: obeys commands(6). Verbal Response: dd2 oriented(5). Total: 15. MDM: 02:26 Medical Screening Exam initiated rt 05:04 Differential diagnosis: CHF exacerbation, Myocardial Infarction pneumonia, rt Pneumothorax. Data reviewed: vital signs, nurses notes, lab test result(s), EKG, radiologic studies. Consideration of Admission/Observation Patient requires transfer as we do not have Export Specialist available until Wednesday.. I considered the following discharge prescriptions or medication management in the emergency department Medications were administered in the Emergency Department. See MAR. Independent interpretation of the following test(s) in the Emergency Department X-Ray: My interpretation is Pulmonary edema seen on interpretation of x-ray images. Test considered but Not performed: CT: Do not suspect pulmonary embolus, CT angiogram not indicated. Care significantly affected by the following chronic conditions: Diabetes, Hypertension. Counseling: I had a detailed discussion with the patient and/or guardian regarding the historical points, exam findings, and any diagnostic results supporting the discharge/admit diagnosis, lab results, radiology results, the need to transfer to another facility. Response to treatment: the patient's symptoms have markedly improved after treatment. 05:04 ED course: Radiology report reads possible infiltrate, I believe that this represents a rt pulmonary edema, no leukocytosis, fever. Do not suspect patient's presentation is due to infectious etiology.. 01/28 03:31 Order name: Blood Culture Adult (2) rt 01/28 02:27 Order name: Basic Metabolic Panel; Complete Time: 04:54 rt 01/28 02:27 Order name: CBC with Diff; Complete Time: 05:02 rt 01/28 02:27 Order name: LFT's; Complete Time: 04:54 rt 01/28 02:27 Order name: NT PRO-BNP; Complete Time: 04:54 rt 01/28 02:27 Order name: Troponin HS; Complete Time: 04:54 rt 01/28 02:27 Order name: ABG; Complete Time: 04:54 rt 01/28 03:31 Order name: Lactate w/ 2H reflex if indic.; Complete Time: 05:02 rt 01/28 03:31 Order name: Protime (+inr); Complete Time: 05:02 rt 01/28 03:31 Order name: Ptt, Activated; Complete Time: 05:02 rt 01/28 04:55 Order name: CBC Smear Scan EDMS 01/28 04:14 Order name: RAD; Complete Time: 04:15 EDMS 01/28 02:27 Order name: Cardiac monitoring; Complete Time: 02:51 rt 01/28 02:27 Order name: EKG - Nurse/Tech; Complete Time: 02:51 rt 01/28 02:27 Order name: IV Saline Lock; Complete Time: 02:51 rt 01/28 02:27 Order name: Labs collected and sent; Complete Time: 03:31 rt 01/28 02:27 Order name: O2 Per Protocol; Complete Time: 02:32 rt 01/28 02:27 Order name: O2 Sat Monitoring; Complete Time: 02:32 rt 01/28 03:31 Order name: Accucheck; Complete Time: 04:12 rt 01/28 03:31 Order name: IV Saline Lock - Large Bore; Complete Time: 03:36 rt 01/28 03:31 Order name: Vital Signs; Complete Time: 03:36 rt 01/28 04:42 Order name: EKG - Nurse/Tech; Complete Time: 04:55 rt EC:59 Rate is 104 beats/min. Rhythm is regular, Sinus tachycardia with No ectopy. QRS [place] is rt Normal. MD interval is normal. QRS interval is normal. QT interval is normal. ST Segment is depressed in leads V5, V6. 05:04 Rate is 94 beats/min. Rhythm is regular, Normal Sinus Rhythm with No ectopy. QRS [place] rt is Normal. MD interval is normal. QRS interval is normal. QT interval is normal. No Q waves. ST Segment is depressed in leads V5, V6. Administered Medications: 04:25 Drug: LevaQUIN IVPB 750 mg IVPB once Route: IVPB; Site: left hand; dd2 04:40 Follow up: Response: No adverse reaction dd2 06:05 Follow up: IV Status: Completed infusion; IV Intake: 150ml dd2 05:33 Drug: Aspirin PO 325 mg PO once Route: PO; dd2 06:03 Follow up: Response: No adverse reaction dd2 05:47 Drug: Heparin (PR-Bolus No thrombolytic) - HEParin IVP 60 units/kg IVP once; Max 5000 dd2 units {Co-Signature: sena (Liza Rodney RN).} Route: IVP; Site: left hand; 06:02 Follow up: Response: No adverse reaction dd2 05:53 Drug: Heparin (PR Drip) 12 units/kg/[place] - ([place] [address] units, D5W IV 500 ml) IV at dd2 calculated rate Per protocol; Max initial rate 1000 units/hr {Co-Signature: al5 (Liza Rodney RN).} Route: IV; Rate: calculated rate; Site: left hand; 06:08 Follow up: Response: No adverse reaction dd2 07:05 Follow up: IV Status: Infusion continued upon transfer dd2 Disposition: 05:04 Critical Care:. rt Disposition Summary: 01/29/24 05:48 Transfer Ordered Notes: Transfer Location: [facility] rt Reason: Higher level of care rt Condition: Critical rt Problem: new rt Symptoms: have improved rt Accepting Physician: (01/29/24 07:38) ph Diagnosis - Subsequent non-ST elevation (NSTEMI) myocardial infarction rt - CHF exacerbation rt - Hypoxic respiratory failure rt Forms: - Medication Reconciliation Form rt - SBAR form rt Critical care time excluding procedures: 05:04 Critical care time: Bedside Care: 30 minutes, Consultation: 5 minutes. Total time: 35 rt minutes Signatures: Dispatcher [employer] Barbie Rosenberg RN RN ph [place], Ryan, MD MD rt Liza Rodney RN RN al5 DWAYNE LIANG RN RN dd2 Liza Rodney RN al5 Corrections: (The following items were deleted from the chart) 04:11 04:11 BASIC METABOLIC PANEL+C.LAB.BRZ ordered. EDMS EDMS 04:11 04:11 CBC+H.LAB.BRZ ordered. EDMS EDMS 04:11 04:11 HEPATIC FUNCTION+C.LAB.BRZ ordered. EDIN EDMS 04:11 04:11 PROBNP+C.LAB.BRZ ordered. EDMS EDMS 04:11 04:11 Troponin High Sensitivity+C.LAB.BRZ ordered. EDMS EDMS 04:11 04:11 Chest Single View+RAD.RAD.BRZ ordered. EDMS EDMS 04:12 04:11 BiPap ([employer] Only)+RC.RAD.BRZ ordered. EDMS EDMS 04:12 04:12 Arterial Blood Gas+RC.LAB.BRZ ordered. EDMS EDMS 04:12 04:12 BLOOD CULTURE*+BA.LAB.BRZ ordered. EDMS EDMS 04:12 04:12 LACTATE+C.LAB.BRZ ordered. EDMS EDMS 04:12 04:12 PROTIME (+INR)+COAG.LAB.BRZ ordered. EDMS EDMS 04:12 04:12 PTT, ACTIVATED+COAG.LAB.BRZ ordered. EDMS EDMS 07:38 05:48 Dr. sim ph
--- NOTE | 2024-01-29 05:49 | ER ---
Nurse's Notes [facility] Name: Mary Shields Age: 68 yrs Sex: Female : 1955 Arrival Date: 01/29/2024 Time: 02:04 Bed 3 Private MD: Diagnosis: Subsequent non-ST elevation (NSTEMI) myocardial infarction;CHF exacerbation;Hypoxic respiratory failure Presentation: 01/28 02:25 Chief complaint: EMS states: EMS toned out for difficulty breathing. patient states al5 she woke up and was having difficulty breathing, has never had this happen to her before. Coronavirus screen: At this time, the client does not indicate any symptoms associated with coronavirus-19. Ebola Screen: No symptoms or risks identified at this time. 02:25 Method Of Arrival: EMS: [facility] al5 02:25 Initial Sepsis Screen: Does the patient meet any 2 criteria? RR > 20 per min. HR > 90 al5 bpm. Does the patient have a suspected source of infection? No. Patient's initial sepsis screen is negative. Risk Assessment: Do you want to hurt yourself or someone else? Patient reports no desire to harm self or others. Onset of symptoms was January 29, 2024. 02:25 Acuity: EFRAÍN 2 al5 02:25 Care prior to arrival: BiPAP machine FiO2 100%, PEEP 5, VT 442, bpm 32 IV initiated. 18 al5 GA, in the right antecubital area. Triage Assessment: 02:25 General: Appears in no apparent distress. ill, Behavior is calm, cooperative. Pain: al5 Denies pain. EENT: No signs and/or symptoms were reported regarding the EENT system. Neuro: Level of Consciousness is awake, alert, obeys commands, Oriented to person, place, time, situation. Cardiovascular: Capillary refill < 3 seconds Patient's skin is warm and dry. Respiratory: Reports shortness of breath Airway is patent Respiratory effort is even, labored, Respiratory pattern is regular, symmetrical. Respiratory: Onset: The symptoms/episode began/occurred just prior to arrival, the patient has moderate shortness of breath. GI: No signs and/or symptoms were reported involving the gastrointestinal system. : No signs and/or symptoms were reported regarding the genitourinary system. Derm: Skin is intact, Skin is pink, warm \T\ dry. normal. Derm: No signs and/or symptoms reported regarding the dermatologic system. Historical: - Allergies: 02:25 No Known Allergies; al5 - Home Meds: 02:25 Brilinta 90 mg oral tablet daily [Active]; metoprolol succinate oral daily [Active]; al5 rosuvastatin 10 mg oral tablet daily [Active]; losartan 100 mg oral tablet twice a day [Active]; hydrochlorothiazide 12.5 mg Oral tablet daily [Active]; - PMHx: 02:25 diabetes mellitus; Hypertensive disorder; Hypercholesterolemia; al5 - PSHx: 02:25 Stented artery; al5 - Immunization history:: Adult Immunizations up to date. - Infectious Disease History:: Denies. - Social history:: Smoking status: unknown. - Family history:: not pertinent. Screenin:57 [facility] ED Fall Risk Assessment (Adult) History of falling in the last 3 months, al5 including since admission No falls in past 3 months (0 pts) Confusion or Disorientation No (0 pts) Intoxicated or Sedated No (0 pts) Impaired Gait No (0 pts) Mobility Assist Device Used No (0 pt) Altered Elimination No (0 pt) Score/Fall Risk Level 0 - 2 = Low Risk Oriented to surroundings, Maintained a safe environment, Hourly rounding (assess needs \T\ fall precautionary measures) done. Abuse screen: Denies threats or abuse. Denies injuries from another. Nutritional screening: No deficits noted. Tuberculosis screening: No symptoms or risk factors identified. Assessment: 02:25 Reassessment: see triage assessment. al5 02:25 Cardiovascular: Rhythm is sinus tachycardia. Respiratory: Airway is patent Respiratory al5 effort is even, unlabored, Respiratory pattern is regular, symmetrical, Patient placed on BiPAP: FiO2%: 100 Breath sounds with rales. 03:54 Reassessment: Pedi tubes and pedi culture collected and set to lab. dd2 07:31 Reassessment: Patient appears in no apparent distress at this time. Patient and/or ph family updated on plan of care and expected duration. Pain level reassessed. [facility] at bedside, report given to LORI Fernandez-P, pt transferred w/ bi-pap in place, VSS. Vital Signs: 02:25 BP 188 / 97; Pulse 111; Resp 24; Temp 97.8; Pulse Ox 100% on BiPAP; Weight 68.49 kg; al5 Height 5 ft. 5 in. ; 02:34 BP 174 / 84; Pulse 103; Resp 20; Pulse Ox 97% ; dd2 03:35 BP 143 / 85; Pulse 101; Resp 20; Pulse Ox 99% on BiPAP; dd2 04:35 BP 126 / 63; Pulse 93; Resp 20; Pulse Ox 100% on BiPAP; dd2 05:20 BP 132 / 67; Pulse 92; Resp 18; Pulse Ox 20% ; dd2 06:19 BP 149 / 69; Pulse 90; Resp 20; Temp 98.2; Pulse Ox 100% ; dd2 07:15 BP 155 / 78; Pulse 90; Resp 18; Pulse Ox 100% on BiPAP; ph 02:25 Body Mass Index 25.13 (68.49 kg, 165.1 cm) al5 Vitals: 02:34 Cardiac Rhythm Assessment Sinus tach. dd2 Fiordaliza Coma Score: 02:34 Eye Response: spontaneous(4). Motor Response: obeys commands(6). Verbal Response: dd2 oriented(5). Total: 15. ED Course: 02:25 Patient arrived in ED. gm2 02:25 Praneeth Chase MD is Attending Physician. rt 02:25 No provider procedures requiring assistance completed. Maintain EMS IV. Dressing al5 intact. Good blood return noted. Site clean \T\ dry. Gauge \T\ site: 18G RAC. Flushed with 10 mL NS. 02:25 Arm band placed on right wrist. Patient placed in the treatment room, on a stretcher. al5 02:25 Patient has correct armband on for positive identification. Bed in low position. Call al5 light in reach. Side rails up X2. Provided Education on: plan of care. 02:35 Client placed on continuous cardiac and pulse oximetry monitoring. NIBP monitoring dd2 applied. quality assurance monitor on. Door closed. Noise minimized. Warm blanket given. Pillow given. Verbal reassurance given. 02:50 Triage completed. al5 02:52 EKG done, by electrical design technologist. reviewed by Praneeth Chase MD. O2 via BIPAP. dd2 03:30 DWAYNE LIANG, RN is Primary Nurse. dd2 03:31 Initial lab(s) drawn, by me, sent to lab. Inserted saline lock: 22 gauge in left hand, dd2 using aseptic technique. Blood collected. Flushed with 10 mL NS Missed attempt(s): 20 gauge in left antecubital area. 22 gauge in left antecubital area. Bleeding controlled, band aid applied, catheter tip intact. 04:50 EKG done, by ED staff, reviewed by Praneeth Chase MD. dd2 05:02 initiated transfer with [facility] spoke with Asher Hoskins. kmf 06:24 pt was accepted to [facility] ICU bed 820. Number for nurse to nurse report [phone]. Pt kmf was accepted by Dr House \T\[id number]. Admin approval given by Asher Hoskins \T\ [id number]. Farhana will make note for transfer service. 06:39 Report given to MANUEL SCANLON \T\ [facility]. dd2 Administered Medications: 04:25 Drug: LevaQUIN IVPB 750 mg IVPB once Route: IVPB; Site: left hand; dd2 04:40 Follow up: Response: No adverse reaction dd2 06:05 Follow up: IV Status: Completed infusion; IV Intake: 150ml dd2 05:33 Drug: Aspirin PO 325 mg PO once Route: PO; dd2 06:03 Follow up: Response: No adverse reaction dd2 05:47 Drug: Heparin (NH-Bolus No thrombolytic) - HEParin IVP 60 units/kg IVP once; Max 5000 dd2 units {Co-Signature: al5 (Liza Rodney RN).} Route: IVP; Site: left hand; 06:02 Follow up: Response: No adverse reaction dd2 05:53 Drug: Heparin (NH Drip) 12 units/kg/[place] - ([place] [address] units, D5W IV 500 ml) IV at dd2 calculated rate Per protocol; Max initial rate 1000 units/hr {Co-Signature: al5 (Liza Rodney RN).} Route: IV; Rate: calculated rate; Site: left hand; 06:08 Follow up: Response: No adverse reaction dd2 07:05 Follow up: IV Status: Infusion continued upon transfer dd2 Medication: 02:57 VIS not applicable for this client. al5 Intake: 06:05 IV: 150ml; Total: 150ml. dd2 Outcome: 05:48 ER care complete, transfer ordered by . rt 07:38 Patient left the ED. ph Signatures: Barbie Sweeney, MANUEL RN ph Praneeth Chase MD MD rt Marry Dhillon 2 Quiana Perez Liza Rodney RN RN al5 DWAYNE LIANG RN RN dd2 Liza Rodney RN al5
[2024-01-29 18:03] VITALS: TEMP 98.2; O2SAT 100
[2024-01-29 18:04] VITALS: BP 155/78
--- NOTE | 2024-01-30 15:05 | EKG ---
Test Date: 2024-01-29 Test Time: 04:48:42 Power System Dispatcher: AF MEASUREMENT RESULTS: Intervals: Rate: 94 RI: 156 QRSD: 120 QT: 374 QTc: 467 [place]: P: 53 RI: 156 QRS: -4 T: 258 INTERPRETIVE STATEMENTS: Normal sinus rhythm Septal infarct, age undetermined ST & T wave abnormality, consider inferolateral ischemia Abnormal ECG Compared to ECG 05/19/2023 23:07:53 Myocardial infarct finding now present Possible ischemia now present Sinus tachycardia no longer present ST (T wave) deviation still present Electronically Signed On 01-30-24 15:05:07 CDT by Bandar Elizabeth
--- NOTE | 2024-01-31 12:38 | EKG ---
Test Date: 2024-01-29 Test Time: 02:44:47 Food Scientist: MEASUREMENT RESULTS: Intervals: Rate: 104 ME: 152 QRSD: 122 QT: 338 QTc: 444 [place]: P: 69 ME: 152 QRS: 19 T: -55 INTERPRETIVE STATEMENTS: Sinus tachycardia Septal infarct, age undetermined ST & T wave abnormality, consider lateral ischemia Abnormal ECG Compared to ECG 05/19/2023 23:07:53 Myocardial infarct finding now present Possible ischemia now present ST (T wave) deviation still present Electronically Signed On 01-31-24 12:36:55 CDT by Bandar Elizabeth
== END 2024-01-29 07:38 | disposition short-term general hospital (02) ==
LOC: ER 02:04
DX: I22.2 Subsequent non-ST elevation (NSTEMI) myocardial infarction (principal); I21.9 Acute myocardial infarction, unspecified; J96.91 Respiratory failure, unspecified with hypoxia; I50.9 Heart failure, unspecified; I10 Essential (primary) hypertension; E11.9 Type 2 diabetes mellitus without complications; E78.00 Pure hypercholesterolemia, unspecified
CPT/HCPCS: 96365; 93005; 87040 ×2; 85025; 80048; 36415; 85610; 80076; 83605; 85730; 84484; 83880; 71045; 82805; 96375; 99285; 96366; 36600; 94660; J1644

== ENCOUNTER 2024-02-04 15:07 | Inpatient (IN) | payer OTHER ==
[2024-02-05] MEDS ORDERED: INSULIN REGULAR (HUMAN) 100 UNIT/ML ONE (12:35)
[2024-02-05] MEDS: INSULIN REGULAR (HUMAN) 100 UNIT/ML SQ SCH ×2 (12:46→21:03)
[2024-02-05] MEDS ORDERED: GLUCAGON 1 MG/VIAL IM PRN (13:22)
[2024-02-05] MEDS ORDERED: D50W 25 GM/50 ML SYRINGE IV PRN (13:30)
[2024-02-05] MEDS ORDERED: MELATONIN 3 MG TABLET PO PRN (13:34)
[2024-02-05] MEDS ORDERED: DOCUSATE NA/SENNA CONC 1 TAB PO PRN (13:35)
[2024-02-05] MEDS: carvediloL 12.5 MG TAB PO SCH (17:42)
[2024-02-05] MEDS ORDERED: INSULIN GLARGINE 100 UNIT/ML SQ ONE (18:00)
[2024-02-05 19:00] VITALS: BMI 26.1
[2024-02-05] MEDS: ROSUVASTATIN 10 MG TAB PO SCH (20:31)
[2024-02-05] MEDS: TICAGRELOR 90 MG TABLET PO SCH (20:31)
[2024-02-05] MEDS: APIXABAN 2.5 MG TABLET PO SCH (20:31)
[2024-02-05] MEDS: MAGNESIUM OXIDE 400 MG TAB PO SCH (20:32)
[2024-02-05] MEDS: FAMOTIDINE 20 MG TAB PO SCH (20:32)
[2024-02-05] MEDS: INSULIN GLARGINE 100 UNIT/ML SQ SCH (20:32)
[2024-02-05] MEDS: GABAPENTIN 100 MG CAP PO SCH (20:32)
[2024-02-05] MEDS: ENSURE ENLIVE 237 ML CAN PO SCH (20:37)
[2024-02-05] MEDS: LOPERAMIDE HCL 2 MG CAPSULE PO PRN (22:46)
--- NOTE | 2024-02-06 00:10 | HP ---
Date of Admission: 02/05/2024 Time Of Service: 7:00 p.m. Chief Complaint: "I am weak, I need to get stronger." History Of Present Illness: Ms. Shields is a 68-year-old patient with coronary artery disease, status p ost percutaneous coronary intervention in May 2023. She was on dual antiplatelet therapy, but n ot adherent. In addition, she has type 2 diabetes mellitus and hypertension and came to [facility] with shortness of breath, bilateral lower extremity swelling, orthopnea. EKG showed anterior Q -waves and ST-segment elevation and she was transferred to [facility] on 01/[address]-segment myocardial infarction in the setting of nonadherence to dual antiplatelet therapy. She had transthoracic echocardiogram on 01/28 showing ejection fraction low at 20% to 25%. She had a left heart catheterization with balloon angioplasty of the right coronary artery on 01/31/2022 and was prescribed a LifeVest. However, there was a delay in delivering the LifeVest, which can deliver cardioversion without the need for assistance. In addition, Cardiology had her placed on metoprolol extended release 50 mg daily in addition to guideline directed medical therapy for failure post cath eterization. She also had dual antiplatelet therapy and [place] [employer] diet along wit h Jaja. Furthermore, she was on statin for dyslipidemia. She had heparin drip for anticoagulati on. She was put on strict I's and O's for fluid management for her congestive heart failure and foll ow to have her creatinine, BUN, electrolytes followed with diuresis. She received Lasix for diuresis . She did have negative balance of a liter of fluid, given I's and O's management. She was put on i nsulin sliding scale. Due to her complex medical condition and the need for aggressive therapy, she was considered for physical and occupational therapy inpatient. She was also managed medically and s table to be ready for inpatient rehabilitation. Prior to her worsening CHF, she was able to ambulate with minimum assistance, but become progressively weaker. Since hospitalization and her worsening c ondition, she now requires moderate assistance for bed mobilization, [id number]; minimum assistance to ambulate just 4 feet; and min to mod assist for activities of daily living. She is now admitted to the inpatient rehabilitation unit for physical and occupational therapy to help her reduce the ris k of rehospitalization and help her to return to prior level of functioning. Past Medical History: Hypertension; diabetic neuropathy; decompensated heart failure; coronary arter y disease with angina; [id number]-II-[id number] myocardial infarction; hypertension; early onset dementia, that is Alzheimer disease; bilateral pleural effusion; and diabetes mellitus. Allergies: NO KNOWN DRUG ALLERGIES. X-ray/imaging: Chest x-ray on 01/30 shows interval progression of bilateral pleural effusion with un derlying atelectasis. Medications: Tylenol 500 mg every 4 hours as needed, Eliquis 2.5 mg twice daily, aspirin 81 mg daily , Coreg 12.5 mg twice daily, Pepcid 10 mg daily, Lasix 40 mg daily, gabapentin 100 mg twice daily, Se mglee insulin 10 units at bedtime, magnesium oxide 400 mg twice daily, melatonin 3 mg at bedtime, Ens ure Enlive 237 mL twice daily, Crestor 10 mg at bedtime, Senokot S 2 at bedtime, Brilinta 90 mg twice daily. Laboratory Studies: White blood cell count 4.7, hemoglobin 9.2, hematocrit 28.3, platelets 166. Sod ium 140, potassium 4.3, glucose 146, BUN 52, creatinine 2.13, calcium 8.6. Magnesium 2.5. More rece nt glucose of 219. Review of Systems: She does report some mild shortness of breath, some mild swelling in the legs, some loose stools. Mariana khalil said stools have been runny over the last several days, although some have firmed up more recently. Normally, she goes daily at home and has regular consistency bowel movements. Other than that, no other positives on a 10-point systems review. No difficulty with sleeping. She did have actually a mildly poor appetite, but no other positives on the systems review. Current Level Of Functioning: Supervision for eating, oral hygiene. Moderate assistance for toileti ng. Maximal assistance for showering. Moderate assistance for upper body dressing. Maximum assista nce for lower body dressing and donning and doffing of footwear. Supervision for rolling left-to-rig ht and for a sit to lying and lying to sitting position change moderate assistance is required. Darby g from a bed to a chair and transferring on and off toilet, moderate assistance. Ambulation, moderat e assistance, 4 feet with a rolling walker. Physical Examination: Vital Signs: Blood pressure 130/62, pulse 73, respiratory rate 16, temperature 98.9, oxygen saturati on 95%. Weight 152 pounds, height 5 feet 4 inches, BMI 26.1. General: Ms. Shields is resting comfortably in bed. HEENT: She appears normocephalic, atraumatic. Her sclerae are anicteric oropharynx moist. Neck: Supple. Chest: Mildly decreased sounds. Extremities: Show very trace edema in the lower extremities. Neurological: Proximal weakness in upper and lower extremities. Otherwise, cranial nerves intact. Sensation, stocking-glove loss, light touch temperature, depressed reflexes and she will be ambulated with the gait belt. Rehab And Medical Assessment And Plan: Ms. Shields is admitted to the inpatient rehabilitation unit [facility] impairment category 06, neurological condition. Impairment group code 03.8 neuromuscular disorder. Etiologic diagnosis: Congestive heart failure myopathy. Her comorbidities are renal insufficiency , anemia, coronary artery disease, decreased mobility, decreased physical functioning, diabetes thad tus type 2, dyslipidemia, hypertension, [id number]-[id number] myocardial infarction, renal perfusion with lo wer extremity edema. Plan: 1.She will have physical and occupational therapy 3 hours a day, 5 of 7 days. 2.We will continue with I's and O's. Strict I's and O's and daily weights to make adjustments to di uretic, Lasix, as appropriate. 3.We will continue with the Eliquis 2.5 mg twice daily for DVT prophylaxis. Continue with Brilinta 90 mg twice daily for dual antiplatelet therapy. Continue Senokot as needed only. As she is already having loose stools, we will hold that. Continue Crestor for dyslipidemia, Ensure Enlive for malnut rition, melatonin for insomnia. May hold magnesium oxide depending on if there are extra stools. Fo r diabetes mellitus, she is on a scheduled Semglee insulin 10 units at bedtime, mild sliding scale an d make adjustments of Semglee insulin based on the amount of sliding scale insulin received in 24 salomon rs. She has glucagon as needed if blood sugars become low, gabapentin 100 mg twice daily for neuropa thic pain, Lasix 40 mg daily for fluid management, aspirin 81 mg as an other component of her dual an tiplatelet therapy, and Tylenol for pain. Comorbidities That Are Impacting Rehabilitation: Currently, she does require dual antiplatelet thera py and has Eliquis. She will be at risk of bleeding and fall precautions to be adhered to at all steve es. Blood in the urine and stool will be looked for. Obviously, if need be, chest x-ray, KUB will b e done. Otherwise, she has had some loose stools. May hold magnesium, stool softeners, and protein supplementation depending on the progress. May give Imodium as appropriate. Rehab Specific Plan: Ms. Hernandez will have physical and occupational therapy for 3 hours a day, 5 of 7 days to improve her ability to transfer from her bed to a chair, to a rolling walker, on and off to ilet, in and out of the tub, and walk-in shower. In addition to perform her toileting and showering, therapy will be done. Occupational therapy to help her with the activities of daily living, dressin g and managing her safety awareness, managing medications, and planning her discharge. Ms. Shields has a good understanding of the process of admission to the inpatient rehabilitation [facility] and how she will benefit from physical and occupational therapy. She will have 24 hours a day, 7 d ays a week skilled rehabilitation nursing, daily physician evaluation and management, and social serv ices evaluation and management for discharge planning, home equipment, and followup along with physic al therapy and occupational therapy follow up as needed. If needed, she will have additional help fr om the hospitalist service and cardiology and pulmonology services. Barriers To Discharge: She does have had an issue of noncompliance in the past. While of course whi le hospitalized, she will be receiving medications scheduled. However, if she is to return, she may require help to be compliant with her medication regimen to reduce the risk of rehospitalization. [facility] members may be involved or if need be a facility may have to be selected if she is not able to b e compliant with medications. At this point, she should still be able to do very well while hospital ized and optimizing her fluid management, return to her prior level of functioning, and blood sugar m anagement should be optimized as well. Length Of Stay: About 12 days. Disposition: Home with family and continue therapy via Home Health. Prognosis: Good. Rehab Specific Goals: 1.Become independent with upper and lower body dressing and donning and doffing footwear. 2.Independently mobilize a rolling walker 250 feet. 3.Independently mobilize a wheelchair 250 feet. 4.Independently go up and down 10 steps with bilateral handrails. 5.Independently perform all cognitive functioning. The above goals were reviewed with Ms. Shields and she is in agreement. By signing this document, I acknowledge I personally performed a full physical examination on Ms. Bassam banks no later than 24 hours after her admission to the inpatient rehabilitation facility and determined that she is able to tolerate the above course of treatment at an intensive level for a reasonable per iod of time. A detailed individualized plan of care for her will be completed by hospital day 4 base d on the preadmission screen, history and physical, and therapy evaluations. LUIS A Voice ID: [id number]
[2024-02-06 06:02] LABS: Absolute Eosinophils 0.1 K/uL (0-0.5); Absolute Lymphocytes (CBC) 0.9 K/uL (0.7-4.9); Absolute Monocytes 0.5 K/uL (0.1-1.3); Absolute Neutrophil 3.2 K/uL (1.8-8.0); Basophils % 0.6 % (0-1.3); Eosinophils % 2.8 % (0-4.4); Hematocrit 25.3 % (36.0-45.0); Hemoglobin 8.6 g/dL (12.0-15.0); Lymphocytes % 19.4 % (15.3-44.8); MCH 30.6 pg (27.0-35.0); MCV 89.9 fL (80-100); MPV 8.6 fL (7.6-11.3); Monocytes % 9.5 % (3.3-12.3); Neutrophils % 67.7 % (41.7-73.7); Platelets 149 thou/uL (152-406); RBC Red Blood Cell Count 2.81 M/uL (3.86-4.86); Red Cell Distribution Width 13.6 % (12.1-15.2)
[2024-02-06 06:26] LABS: Albumin 2.8 g/dL (3.4-5.0); Anion Gap 7.4 mEq/L (5.0-15.0); Magnesium 2.3 mg/dL (1.6-2.4); Potassium 4.4 mEq/L (3.5-5.1)
[2024-02-06 06:44] LABS: Specific Gravity 1.011 (1.005-1.030); Sqamous Epithelial None Seen /HPF (None Seen); Urine Bacteria None Seen /HPF (<20); Urine Bilirubin NEGATIVE (Negative); Urine Blood Negative (Negative); Urine Clarity Clear (Clear); Urine Color Light-Yellow (Yellow); Urine Culture Reflex Order NOT NEEDED; Urine Glucose NEGATIVE (Negative); Urine Ketones NEGATIVE (Negative); Urine Micro Reflex YN NO BILL MICROSCOPIC; Urine Nitrite NEGATIVE (Negative); Urine Protein NEGATIVE (Negative); Urine RBC <5 /HPF (None Seen); Urine Urobilinogen Normal (Normal); Urine WBC <5 /HPF (<5); Urine pH 5.5 (5.0-7.0)
[2024-02-06] MEDS: LORATADINE 10 MG TAB PO SCH (07:19)
[2024-02-06] MEDS: ASPIRIN EC 81 MG TAB PO SCH (07:19)
[2024-02-06] MEDS: FUROSEMIDE 40 MG TABLET PO SCH (07:20)
[2024-02-06] MEDS: FERROUS SULFATE 325 MG TAB PO SCH (09:04)
[2024-02-06] MEDS: GLUCERNA SHAKE 237 ML CAN PO SCH (20:00)
[2024-02-07 06:50] LABS: Absolute Eosinophils 0.2 K/uL (0-0.5); Absolute Lymphocytes (CBC) 0.9 K/uL (0.7-4.9); Absolute Monocytes 0.5 K/uL (0.1-1.3); Absolute Neutrophil 2.2 K/uL (1.8-8.0); Basophils % 0.8 % (0-1.3); Eosinophils % 4.2 % (0-4.4); Hematocrit 25.6 % (36.0-45.0); Hemoglobin 8.9 g/dL (12.0-15.0); Lymphocytes % 23.4 % (15.3-44.8); MCH 31.2 pg (27.0-35.0); MCHC 34.9 g/dL (32.0-36.0); MCV 89.4 fL (80-100); MPV 8.5 fL (7.6-11.3); Monocytes % 13.1 % (3.3-12.3); Neutrophils % 58.5 % (41.7-73.7); Nucleated Red Blood Cells % 0.1 % (0-0); Platelets 172 thou/uL (152-406); RBC Red Blood Cell Count 2.86 M/uL (3.86-4.86); Red Cell Distribution Width 13.7 % (12.1-15.2)
[2024-02-07 07:06] LABS: Anion Gap 7.3 mEq/L (5.0-15.0); Potassium 4.3 mEq/L (3.5-5.1)
[2024-02-07] MEDS ORDERED: D10W 125 ML IV PRN (14:02)
--- NOTE | 2024-02-07 16:39 | RAD REPORT ---
Procedure: Chest Single View HISTORY: Chest pain COMPARISON: January 2024 FINDINGS: Bilateral pulmonary opacities have diminished and are mild. Small bilateral pleural effusions. The heart is mildly enlarged IMPRESSION: Mild CHF
[2024-02-07] MEDS: INSULIN GLARGINE 100 UNIT/ML SQ SCH (20:29)
[2024-02-07] MEDS: ENSURE CLEAR 200 ML CAN PO SCH (20:29)
[2024-02-07] MEDS ORDERED: INSULIN GLARGINE 100 UNIT/ML SQ SCH (21:00)
--- NOTE | 2024-02-07 23:15 | PN ---
Date of Progress Note: 02/07/2024 Time Of Service: 1:10 a.m. Subjective: Mary is resting comfortably in her room in between therapy sessions. She has no new c omplaints so far, is happy with therapy improving strength, endurance, coordination. Review of Systems: No fevers, chills, myalgias, arthralgias. No rash, psychiatric complaints, gastrointestinal, OR jennifer tourinary complaints. Fair bowel movements, although she is not quite regulated as of yet. Laboratory Studies: White blood cell count 3.8, hemoglobin 8.9, platelets 172. Sodium 139, potassiu m 4.3, chloride 111, carbon dioxide 25, BUN 55, creatinine 1.93, glucose ranged from 123 to 293, calc ium 8.8. Urinalysis is normal. X-ray/imaging: Chest x-ray was done today to assess for CHF worsening, which showed mild CHF pattern . Medications: Tylenol 500 mg every 4 hours as needed, Eliquis 2.5 mg twice daily, aspirin 81 mg daily , Coreg 12.5 mg twice daily, Ensure Clear 237 mL twice daily to help her reduce loose stools, Pepcid 20 mg daily, ferrous sulfate 325 mg daily, Lasix 40 mg daily, gabapentin 100 mg twice daily, Semglee insulin increased from 10 units daily to 15 units daily today and at night, Imodium 2 mg every 4 hour s as needed for diarrhea, Claritin 10 mg daily, magnesium oxide 400 mg twice daily, melatonin 3 mg at bedtime, Crestor 10 mg at bedtime, Senokot S 2 at bedtime, and Brilinta 90 mg twice daily. Physical Examination: Vital Signs: blood pressure 130/59, pulse 65, respiratory rate 16, temperature 98.2, oxyg en saturation 95%. General: Mary is sitting in a chair beside bed. She did report some loose stools as noted and she has Imodium on board. Ensure was now moved to Clear Ensure. HEENT: Otherwise, she is normocephalic, atraumatic. Sclerae anicteric. Oropharynx pink, moist. Neck: Supple. Chest: Clear. Extremities: More proximal weakness in upper and lower extremities. Progress Made With Physical And Occupational Therapy: Today with occupational therapy, she did showe ring with contact guard assistance, able to reach all body parts. Toileting, toilet transfers with g rab bar done with supervision. With physical therapy, rolling walker, she covered 50 feet with minim um assistance and mobilized wheelchair 100 feet with contact guard assistance. The patient's son was present during the session to have family training. Assessment: Mary is a 68-year-old patient in the rehabilitation unit with congestive heart failure myopathy. She does have some loose stools and is on Imodium as her Ensure adjusted to Clear Ensure. Magnesium oxide still on board may be contributing as well. Her congestive heart failure is mild a s seen on x-ray. She does have decreased mobility, decreased physical functioning, diabetes mellitus type 2, and her insulin dosage was adjusted that was Semglee insulin from 10 to 15 units at night. She has non ST-segment myocardial infarction. No current chest pain. She has renal insufficiency. Plan: She will continue with physical and occupational therapy 3 hours a day, 5/7 days. She has I's and O's monitored. We will continue Eliquis for DVT prophylaxis. The Brilinta for stroke risk redu ction, Crestor for dyslipidemia, melatonin for insomnia, magnesium oxide for muscle spasms, Claritin for allergies, Imodium for her current diarrhea, Lasix 40 mg daily for fluid management. Ensure Sahara r discontinued. She has Coreg 12.5 mg twice daily for heart rate and blood pressure control, Eliquis 2.5 mg twice daily for DVT prophylaxis. VINCENT/LINETTE Voice ID: [id number] Report ID: [id number]
[2024-02-08 07:09] LABS: Anion Gap 9.3 mEq/L (5.0-15.0); Potassium 4.3 mEq/L (3.5-5.1)
[2024-02-08] MEDS: FAMOTIDINE 20 MG TAB PO SCH (07:32)
[2024-02-08] MEDS ORDERED: FORMULATION-R RECTAL 57GM PR PRN (18:36)
[2024-02-09] MEDS: FUROSEMIDE 20 MG TABLET PO SCH (08:17)
[2024-02-09] MEDS: ACETAMINOPHEN 500 MG TAB PO PRN (20:43)
--- NOTE | 2024-02-10 01:08 | PN ---
Date of Progress Note: 02/09/2024 Time Of Service: 1:30 p.m. Subjective: Ms. Shields is sitting in a chair in the gym, reporting no new complaints, saying of course the right leg does tend to turn inwards as she tries to mobilize and she has a left foot AFO in plac e. She denies any shortness of breath. Review of Systems: No fevers, chills, nausea, vomiting. No myalgias, arthralgias. She does have weakness in the right lower extremity with the right foot tending to roll inwards. Physical Examination: Vital Signs: Blood pressure 141/62, pulse 74, respiratory rate 17, temperature 98.2, oxygen saturati on 95%. General: Ms. Shields again is sitting in a chair in the gym. HEENT: She is normocephalic, atraumatic. Sclerae anicteric. Oropharynx pink, moist. Neck: Supple. Chest: Clear. Extremities: She is actually very strong bilaterally in upper extremities. Right lower extremity al so significantly strong, but with right foot eversion that is outward movement, she has more weakness there, around 3 to 4/5 with inversion 4/5, plantar flexion 4/5. Laboratory Studies: Blood sugars ranged from 125 to 228. X-ray/imaging: No new x-rays or imaging. Medications: Medications have been reviewed and she continues with Lasix 20 mg daily that has been d ecreased. She has had episodes of low blood pressure. Progress Made With Physical And Occupational Therapy: Today with physical therapy, she ambulated 25 feet, 50 feet twice, and 60 feet with a rolling walker and contact guard assistance. Mobilized a whe elchair 175 feet with standby assistance. She did have some issues of the right toe dragging. She d id yqa-dl-vfmud transfers with contact guard assistance, multiple hfhao-ep-znpbq transfers with conta ct guard assistance. With occupational therapy, she did practice donning and doffing shoes, socks, A FO, to adjust the left foot and shoes. Supervision for lvu-ao-ziblf transfers. Assessment: Ms. Shields is a 68-year-old patient in the rehabilitation unit with CHF myopathy with prox imal weakness in the upper extremity, but significant weakness in the right lower extremity and the l eft where she has footdrop. She has arthritic changes in the hands. She has decreased mobility, dec reased physical functioning, diabetes mellitus, and renal insufficiency. Plan: 1.Continue with physical, occupational, and speech therapy for 3.5 hours, 5 of 7 days. She is to be monitored for her fluid level and balance. She has Brilinta for stroke risk reduction, magnesium ox acosta for muscle spasms, Claritin for allergies, Imodium for diarrhea, Lasix has been decreased. She h as Ensure Clear for malnutrition, Coreg also for blood pressure with parameters to hold for systolic less than 120. She has Eliquis 2.5 mg twice daily for DVT prophylaxis. Comorbidities That Are Impacting Rehabilitation: Her right lower extremity and left lower extremity weakness will result in foot drag and toe drag and this poses a high risk of falling. This was empha sized to the patient and she is working hard on increasing her strength in the lower extremities by u sing ankle and foot weights. LB/MODL Voice ID: [id number] Report ID: [id number]
[2024-02-10 06:37] LABS: Absolute Eosinophils 0.1 K/uL (0-0.5); Absolute Lymphocytes (CBC) 1.2 K/uL (0.7-4.9); Absolute Monocytes 0.5 K/uL (0.1-1.3); Absolute Neutrophil 2.3 K/uL (1.8-8.0); Basophils % 0.7 % (0-1.3); Eosinophils % 2.5 % (0-4.4); Hematocrit 24.3 % (36.0-45.0); Hemoglobin 8.4 g/dL (12.0-15.0); Lymphocytes % 28.6 % (15.3-44.8); MCH 31.3 pg (27.0-35.0); MCHC 34.6 g/dL (32.0-36.0); MCV 90.5 fL (80-100); MPV 8.6 fL (7.6-11.3); Monocytes % 12.5 % (3.3-12.3); Neutrophils % 55.7 % (41.7-73.7); Nucleated Red Blood Cells % 0.1 % (0-0); Platelets 184 thou/uL (152-406); RBC Red Blood Cell Count 2.68 M/uL (3.86-4.86); Red Cell Distribution Width 13.8 % (12.1-15.2)
[2024-02-10 06:57] LABS: Albumin 2.8 g/dL (3.4-5.0); Anion Gap 8.2 mEq/L (5.0-15.0); Magnesium 2.3 mg/dL (1.6-2.4); Potassium 4.2 mEq/L (3.5-5.1); Prealbumin 19.2 mg/dL (20-40)
[2024-02-10] MEDS: INSULIN GLARGINE 100 UNIT/ML SQ SCH (18:55)
--- NOTE | 2024-02-11 00:10 | PN ---
Time Of Service: 1:35 p.m. Subjective: Ms. Shields is sitting in the gym. She is working hard at improving her right lower extrem ity strength that has been affected. With the left, she has AFO on the left. She has no new complai nts. Review of Systems: No fevers, chills. No mild myalgias, arthralgias. No rash. No psychiatric complaints. Physical Examination: Vital Signs: Blood pressure 138/63, pulse 81, respiratory rate 16, temperature 97.8, oxygen saturati on 98%. General: Ms. Shields is sitting comfortably. She is in no acute distress. She is normocephalic and at raumatic. Sclerae anicteric. Oropharynx pink, moist. Neck: Supple. Chest: Clear. Extremities: She does have arthritic changes in both hands. Still has significant strength though p roximally and distally. Lower extremities, more distal weakness in the right than left, with the rig ht foot with a tendency to curl inwards. Laboratory Studies: White blood cell count 4.1, hemoglobin 8.4, platelets 184. Sodium 138, potassiu m 4.2, chloride 108, carbon dioxide 26, BUN 59, creatinine 1.83, glucose range from 135 to 205, calci um 8.8, magnesium 2.3, albumin 2.8, prealbumin 19.2. X-ray/imaging: No new x-rays or imaging. Medications: Reviewed. She is on the Lasix at 20 mg daily, I will decrease. Otherwise, all medicat ions continue unchanged. Progress Made With Physical, Occupational, And Speech Therapy: Today with physical therapy, she did multiple gxu-iq-ckxlf transfers with supervision. Multiple ppplo-iq-xlwvc transfers also done with [place]. She ambulated 75 feet, 60 feet with a rolling walker with contact guard assistance. Mob ilized with wheelchair 105 feet with standby assistance. With occupational therapy, standby to conta ct guard assistance for toilet transfer and grab bars independently, self-propelled wheelchair from t he room to the gym. Assessment: Ms. Shields is a 68-year-old patient with congestive heart failure myopathy. She also has distal weakness in lower extremities. She has decreased mobility, decreased physical functioning, di abetes mellitus, renal insufficiency. Plan: 1.Continue with physical and occupational therapy 3 hours a day, 5 of 7 days. 2.List of comorbid conditions and medications have been reviewed and they are continued, including E liquis 2.5 mg twice daily for DVT prophylaxis, Coreg 12.5 mg twice daily, Ensure Clear, Pepcid, chapo us sulfate, Lasix, gabapentin. She has Semglee insulin at 15 units every 4 hours. May be increased to 17 units. Continue Claritin, melatonin, Senokot, with Brilinta. VINCENT/LINETTE Voice ID: [id number] Report ID: [id number]
--- NOTE | 2024-02-11 14:17 | P.RH.PN ---
Estimated Length of Stay: 11 Expected Discharge Date: 02/12/24 Discharge Disposition Plan: Home Family Support: Yes Skilled Nursing Goal: Mobility, Transfers, Self Care Vital Signs: Last Vital Signs Temp 98.2 F 02/11/24 08:00 Pulse 60 02/11/24 09:38 Resp 16 02/11/24 08:00 BP 126/56 L 02/11/24 09:38 Pulse Ox 96 02/11/24 08:00 Laboratory: Laboratory Last Values WBC 4.10 thou/uL (4.3-10.9) L 02/10/24 05:15 RBC 2.68 M/uL (3.86-4.86) L 02/10/24 05:15 Hgb 8.4 g/dL (12.0-15.0) L 02/10/24 05:15 Hct 24.3 % (36.0-45.0) L 02/10/24 05:15 MCV 90.5 fL (80-100) 02/10/24 05:15 MCH 31.3 pg (27.0-35.0) 02/10/24 05:15 MCHC 34.6 g/dL (32.0-36.0) 02/10/24 05:15 RDW 13.8 % (12.1-15.2) 02/10/24 05:15 Plt Count 184 thou/uL (152-406) 02/10/24 05:15 MPV 8.6 fL (7.6-11.3) 02/10/24 05:15 Neutrophils % 55.7 % (41.7-73.7) 02/10/24 05:15 Lymphocytes % 28.6 % (15.3-44.8) 02/10/24 05:15 Monocytes % 12.5 % (3.3-12.3) H 02/10/24 05:15 Eosinophils % 2.5 % (0-4.4) 02/10/24 05:15 Basophils % 0.7 % (0-1.3) 02/10/24 05:15 Absolute Neutrophils 2.3 K/uL (1.8-8.0) 02/10/24 05:15 Absolute Lymphocytes 1.2 K/uL (0.7-4.9) 02/10/24 05:15 Absolute Monocytes 0.5 K/uL (0.1-1.3) 02/10/24 05:15 Absolute Eosinophils 0.1 K/uL (0-0.5) 02/10/24 05:15 Absolute Basophils 0.0 K/uL (0-0.5) 02/10/24 05:15 Sodium 138 mEq/L (136-145) 02/10/24 05:15 Potassium 4.2 mEq/L (3.5-5.1) 02/10/24 05:15 Chloride 108 mEq/L (98-107) H 02/10/24 05:15 Carbon Dioxide 26 mEq/L (21-32) 02/10/24 05:15 Anion Gap 8.2 mEq/L (5.0-15.0) 02/10/24 05:15 BUN 59 mg/dL (7-18) H 02/10/24 05:15 Creatinine 1.83 mg/dL (0.55-1.02) H 02/10/24 05:15 Est GFR (CKD-EPI) 30 ml/min (=/>90) L 02/10/24 05:15 Glucose 163 mg/dL (74-106) H 02/10/24 05:15 POC Glucose 192 mg/dL (65-120) H 02/11/24 11:24 Calcium 8.8 mg/dL (8.5-10.1) 02/10/24 05:15 Magnesium 2.3 mg/dL (1.6-2.4) 02/10/24 05:15 Albumin 2.8 g/dL (3.4-5.0) L 02/10/24 05:15 Prealbumin 19.2 mg/dL (20-40) L 02/10/24 05:15 Urine Color Light-yellow (Yellow) 02/06/24 05:40 Urine Clarity Clear (Clear) 02/06/24 05:40 Urine pH 5.5 (5.0-7.0) 02/06/24 05:40 Ur Specific [place] 1.011 (1.005-1.030) 02/06/24 05:40 Glucose (UA)(Auto) Negative (Negative) 02/06/24 05:40 Urine Ketones Negative (Negative) 02/06/24 05:40 Urine Blood Negative (Negative) 02/06/24 05:40 Urine Nitrite Negative (Negative) 02/06/24 05:40 Urine Bilirubin Negative (Negative) 02/06/24 05:40 Urine Urobilinogen Normal (Normal) 02/06/24 05:40 Ur Leukocyte Esterase Negative Beena/uL (Negative) 02/06/24 05:40 Urine RBC <5 /HPF (None Seen) 02/06/24 05:40 Urine WBC <5 /HPF (<5) 02/06/24 05:40 Ur Squamous Epith Cells None seen /HPF (None Seen) 02/06/24 05:40 Urine Bacteria None seen /HPF (<20) 02/06/24 05:40 Hyaline Casts 0-5 /LPF (None Seen) 02/06/24 05:40 Urine Culture Reflexed Not needed 02/06/24 05:40 Urine Total Protein Negative (Negative) 02/06/24 05:40 Weight: 144 lb 1.6 oz Wound Present: No Closed Surgical Incision Present: No Negative Pressure Wound Therapy Present: No Physician Update: Labs reviewed and are stable. Difficulty with balance and coordination due to bilateral lower extremity weakness. Walking better with higher shoes and is supervision with transfers. Up and down 10 steps, WC 150' with CGA. RW 100+ feet with supervision. Met all ADL goals with the shoes that past the ankles. She has a LifeVest in place. Summary: Patient's care plan and exterminator goals have been reviewed and revised as necessary. Please see the Rehabilitation Signature page for all necessary signatures.
[2024-02-12 15:12] VITALS: TEMP 97.9
[2024-02-12 15:16] VITALS: BP 127/50
[2024-02-13] MEDS ORDERED: FUROSEMIDE 20 MG TABLET PO SCH (08:00)
== END 2024-02-12 14:25 | disposition home health service (06) | DRG 92 ==
LOC: 5TH 02-05 11:39 → UNDOADMIN 02-05 11:45 → 5TH 02-05 11:45
PROVIDERS: ADMIT Psychiatry & Neurology Neurology with Special Qualifications in Child Neurology; ATTEND Psychiatry & Neurology Neurology with Special Qualifications in Child Neurology
DX: G72.89 Other specified myopathies (principal); E46 Unspecified protein-calorie malnutrition; I25.10 Atherosclerotic heart disease of native coronary artery without angina pectoris; R06.01 Orthopnea; E78.5 Hyperlipidemia, unspecified; I11.0 Hypertensive heart disease with heart failure; E11.40 Type 2 diabetes mellitus with diabetic neuropathy, unspecified; I50.9 Heart failure, unspecified; G30.9 Alzheimer's disease, unspecified; F02.80 Dementia in other diseases classified elsewhere, unspecified severity, without behavioral disturbance, psychotic disturbance, mood disturbance, and anxiety; N28.9 Disorder of kidney and ureter, unspecified; D64.9 Anemia, unspecified; Z68.24 Body mass index [BMI] 24.0-24.9, adult; I25.2 Old myocardial infarction; Z79.01 Long term (current) use of anticoagulants
CPT/HCPCS: 36415; 71045; 80048; 81001; 82040; 82947; 83735; 84134; 85025; 87077; 87086; 87088; 87186; 97110; 97116; 97163; 97165; 97530; 97542